=== PATIENT | male | born 1955 | race Caucasian/White ===

== ENCOUNTER 2017-04-19 05:57 | Inpatient (IN) | payer BC ==
[2017-04-19] MEDS ORDERED: Acetaminophen IV 1GM/100ML * 1,000 MG/100 ML VIAL IVPB ONE (06:00)
[2017-04-19] MEDS ORDERED: Ketorolac INJ* 30 MG/ML 1 ML VIAL IV ONE (06:00)
[2017-04-19] MEDS ORDERED: Metoclopramide TAB* 10 MG PO ONE (06:00)
[2017-04-19] MEDS ORDERED: Gabapentin CAP(*) 300 MG PO ONE (06:00)
[2017-04-19] MEDS ORDERED: Buffered Lidocaine 0.9% SYRIN* 5 ML/SYR SYRINGE INTRADERM ONE (06:00)
[2017-04-19] MEDS ORDERED: Famotidine IV* 10 MG/ML 2 ML (20 mg) IV ONE (06:00)
--- OUTSIDE RECORDS SUMMARY | 2017-04-19 06:02 | XMS REPORT ---
:1955 External Reference #:[id number] Author Organization [facility] Address [address] [address] Phone [phone] Care Team Providers Name Role Phone Max Shepherd M.D. Primary Care Physician Unavailable Payers Type Date Identification Numbers Payment Provider Subscriber Commercial Effective: Policy Number: [employer] [place] 2011 [id number] PayID: [id number] [address] [address] [place] [address] Problems Date Description Provider Status Onset: 06/19/2009 Obstructive sleep apnea syndrome Cate Schwartz DNP, RN, Active [employer] Onset: 04/18/2015 Localized, primary osteoarthritis Addy Alvarez M.D. Active Onset: 04/18/2015 Joint derangement Addy Alvarez M.D. Active Family History Date Family Member(s) Problem(s) Comments General Heart Disease General Diabetes Mother Unknown Social History Type Date Description Comments Marital Status Lives With spouse ETOH Use Denies alcohol use Smoking Patient has never smoked Exercise Type/Frequency Does not exercise Allergies, Adverse Reactions, Alerts Date Description Reaction Status Severity Comments 02/08/2013 Ketorolac active Medications Medication Date Status Form Strength Qnty SIG Indications Ordering Provider Nexium Active Capsule 40mg I by mouth Unknown 015 prn Meloxicam Active 7mg As Unknown 015 directed Tessalon /0 Active Capsules 100mg 1-2 by Unknown Perles 000 mouth three times a day as needed Flexeril Hx Tablets 10mg 60tabs 1 by mouth Addy 014 - twice a Kim, day as M.DObey 014 needed Neurontin Hx Capsules 300mg 30caps 1 po qhs Addy 013 - Kim, M.Ramiro 014 Sumatriptan 00/0 Hx Unknown Succinate 000 - 015 Ventolin HFA /0 Hx Unknown 000 - 014 Oxycodone HCL /0 Hx Unknown 000 - 014 Vital Signs Date Vital Result Comment 04/07/2017 Height 70 inches 5'10" Weight 252.00 lb w/shoes Heart Rate 82 /min BP Systolic Sitting 130 mmHg LA reg cuff BP Diastolic Sitting 92 mmHg LA reg cuff Pain Level 0 BMI (Body Mass Index) 36.2 kg/m2 03/03/2017 Height 70 inches 5'10" Weight 255.00 lb Heart Rate 60 /min BP Systolic Sitting 96 mmHg BP Diastolic Sitting 60 mmHg Respiratory Rate 14 /min O2 % BldC Oximetry 98 % BMI (Body Mass Index) 36.6 kg/m2 11/18/2016 Height 70 inches 5'10" Weight 250.00 lb Heart Rate 68 /min BP Systolic 139 mmHg BP Diastolic 79 mmHg Body Temperature 96.0 F BMI (Body Mass Index) 35.9 kg/m2 03/03/2016 Height 70 inches 5'10" Weight 250.00 lb Heart Rate 86 /min BP Systolic 118 mmHg BP Diastolic 84 mmHg Respiratory Rate 14 /min O2 % BldC Oximetry 98 % BMI (Body Mass Index) 35.9 kg/m2 06/20/2015 Height 70 inches 5'10" Weight 250.00 lb Pain Level 2 BMI (Body Mass Index) 35.9 kg/m2 04/18/2015 Height 70 inches 5'10" Weight 250.00 lb Heart Rate 68 /min BP Systolic Sitting 142 mmHg BP Diastolic Sitting 90 mmHg Respiratory Rate 18 /min Pain Level 4 BMI (Body Mass Index) 35.9 kg/m2 03/01/2015 Height 71 inches 5'11" Heart Rate 75 /min BP Systolic 138 mmHg BP Diastolic 92 mmHg Respiratory Rate 14 /min O2 % BldC Oximetry 98 % 12/28/2014 Height 71 inches 5'11" Weight 254.50 lb Heart Rate 77 /min BP Systolic Standing 112 mmHg BP Diastolic Standing 80 mmHg Respiratory Rate 14 /min Body Temperature 97.1 F O2 % BldC Oximetry 97 % BMI (Body Mass Index) 35.5 kg/m2 Neck Circumference in inches 18.5 07/12/2013 Height 71 inches 5'11" Weight 245.00 lb Heart Rate 86 /min BP Systolic 127 mmHg BP Diastolic 86 mmHg BMI (Body Mass Index) 34.2 kg/m2 06/02/2013 Heart Rate 79 /min BP Systolic 135 mmHg BP Diastolic 91 mmHg 05/05/2013 Heart Rate 82 /min BP Systolic 122 mmHg BP Diastolic 87 mmHg 04/21/2013 Heart Rate 78 /min BP Systolic 140 mmHg BP Diastolic 86 mmHg 02/08/2013 Height 70 inches 5'10" Weight 250.00 lb Heart Rate 70 /min BP Systolic 139 mmHg BP Diastolic 76 mmHg BMI (Body Mass Index) 35.9 kg/m2 Results Description No Information Procedures Date CPT Code Description Status 04/13/2013 58037 Arthroscopy Shoulder,W/Rotator Cuff Repair Completed 04/13/2013 97903 Arthroscopy Shoulder,W/Rotator Cuff Repair Completed 04/13/2013 69668 Arthroscopy,Shoulder Decompression Of Subacromial Space Completed W/Acromio 04/13/2013 58738 Arthroscopy,Shoulder Decompression Of Subacromial Space Completed W/Acromio 04/13/2013 31278 Arthroscopy Shoulder Debridement Limited Completed 04/13/2013 14673 Arthroscopy Shoulder Debridement Limited Completed Encounters Type Date Location Provider CPT E/M Dx Office Visit 03/03/2017 [facility] Cate Schwartz 19876 G47.33 2:45p [facility] RN, FNP-BC Office Visit 11/18/2016 [facility] M.D. 97699 M17.12 9:45a C.M.AObey Office Visit 03/03/2016 [facility] Cate Schwartz 34770 G47.33 3:30p [facility] RN, FNP-BC G47.00 G89.29 Office Visit 06/20/2015 9:45a [facility] 56059 M17.12 C.MElli Mcintosh Office Visit 04/18/2015 10:30a [facility] 30329 M17.12 C.MObeyAObey Mcintosh M25.362 Office Visit 03/01/2015 3:00p [facility] Cate Schwartz, 24686 G47.33 [facility] EVE THORPE, JESSICA-MARIA ELENA E66.9 Office Visit 12/28/2014 3:45p [facility] Cate Schwartz, 09878 G47.33 [facility] EVE THORPE, ELYSE Office Visit 03/22/2013 8:00a [facility], 66590 840.4 C.MElli Mcintosh Office Visit 02/08/2013 2:00p [facility], 41178 353.0 C.MElli Mcintosh 840.9 Plan of Care Future Appointment(s):02/23/2018 2:15 pm - Cate Schwartz DNP, RN, JESSICA-MARIA ELENA at [facility]04/19/2017 7:30 am - Addy Alvarez M.D. at [facility] C.M.AObey04/07/2017 - Addy Alvarez M.D.M17.12 Unilateral primary osteoarthritis, left kneeFollow up:Follow up: 3-4 months post-op
--- OUTSIDE RECORDS SUMMARY | 2017-04-19 06:03 | XMS REPORT ---
:1955 External Reference #:[id number] Author Organization [facility] Address [address] [place] [address] Phone [phone] Care Team Providers Name Role Phone Max Shepherd M.D. 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 [address] PayID: [id number] BRITTON Bennett [address] Medigap Part B Effective: Policy Number: Jelly Mayorga Willem 2011 [id number] Group Name: [employer] [address] [address] PayID: [id number] BRITTON Bennett [id number] Advance Directives Type Date Description Status Comment Other Directive 08/30/2014 Health Care Proxy Current and Verified Problems Date Description Provider Status Onset: 10/21/2011 Obstructive sleep apnea syndrome Max Shepherd M.D. Active Onset: 10/21/2011 Migraine Max Shepherd M.D. Active Onset: 10/21/2011 Gastroesophageal reflux disease Max Shepherd M.D. Active Onset: 10/21/2011 Impaired fasting glycaemia Max Shepherd M.D. Active Family History Date Family Member(s) Problem(s) Comments Father Unknown - Adopted Mother Unknown - Adopted Children 1 First Daughter Non Contributory First Brother Non Contributory Maternal Grandfather Diabetes Maternal Grandfather due to Stroke () Maternal Grandmother Diabetes Maternal Grandmother due to SC () Maternal Grandmother due to Septicemia () Social History Type Date Description Comments Marital Status Lives With Spouse Lives With Daughter Cigarette Use Quit - Age 24 Cigarette Use Pack Years - 10 ETOH Use Rarely consumes beer a couple of times a year. 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 Allergies, Adverse Reactions, Alerts Date Description Reaction Status Severity Comments 01/02/2003 NKDA active Medications Medication Date Status Form Strength Qnty SIG Indications Ordering Provider Benzonatate 04/05/ Active Capsules 200mg 45cap 1 by mouth R05 [place] 2018 s three times [place] a day for , cough Nexium 09/30/ Active Capsules 40mg 30cap take one K21.[address] gipson capsule by Shepherd, mouth daily M.D. Hinged Knee 02/20/ Active 1unit Proximal M25.562 Max Reyna 2014 s thigh Shepherd, diameter M.D. 22-23 cm. . Patellar dislocation. Left knee Cialis 11/01/ Active Tablets 20mg 10tab take 1/2 to 302.70 Max 2013 s 1 tablet by Shepherd, mouth once M.D. daily as needed. Ventolin HFA 10/10/ Active Aerosol 108(90Bas 18uni inhale two Max 2013 e) ts puffs by Cora, mcg/Act mouth every M.D. 4 hours as needed Meloxicam 09/25/ Active Tablets 7.5mg 60tab Take 1 To 2 Max 2009 s Tablets By Shepherd, Mouth Daily M.D. Amoxicillin 12/25/ Hx Tablets 875mg 20tab 1 by mouth H66.92 Max 2016 - s twice a day Cora, 03/24/ x 10 days. M.D. 2018 Ciprofloxacin 12/25/ Hx Solution 0.2% 14uni 0.25mg in H66.92 Max HCL 2016 - ts ear q 12 hrs oCra, 12/25/ x 7 days M.D. 2016 Ofloxacin 12/25/ Hx Solution 0.3% 5ml 10 drops Max (Otic) 2016 - left ear Cora, 03/23/ once per day M.D. 2018 for 10 days Lansoprazole 09/11/ Hx Capsules 30mg 30cap 1 by mouth K21.9 Hema 2016 - DR brandan Wyatt, 11/19/ MANAGER QA-C 2017 Levitra 12/02/ Hx Tablets 20mg 6tabs Take 1/2 To Max 2015 - 1 Tablet By Cora, 11/18/ Mouth Every M.D. 2017 Day as Needed Azithromycin 06/13/ Hx Tablets 250mg 6tabs 2 by mouth 466.0 Max 2014 - every day Cora, 09/11/ day 1, then M.D. 2014 1 by mouth every day days 2-5 Cheratussin ac 06/13/ Hx Syrup 100-10mg/ 236ml 10 ml po 466.0 Max 2014 - 5ML q4hrs prn Cora, 10/30/ M.D. 2014 Piroxicam 01/20/ Hx Capsules 20mg 30cap 1 tablet po 719.41 Aracelis 2012 - s qd for left Jaya, 10/31/ shoulder MANAGER QA-C 2014 pain Tramadol HCL 01/20/ Hx Tablets 50mg 30thi 1-2 tablets 719.41 Aracelis 2013 - rty po q hs prn Jaya, 10/31/ pain MANAGER QA-C 2014 Voltaren 01/18/ Hx Gel 1% 100gm apply 2 gm Max 2012 - to shoulder Cora, 10/31/ qid prn M.D. 2013 Ketorolac 01/11/ Hx Tablets 10mg 30tab 1 po q4-6hrs Max Tromethamine 2012 - s prn Cora, 01/20/ M.D. 2012 Proventil HFA 04/26/ Hx Aerosol 108(90Bas 1unit 2 puffs q4h Max 2012 - e) s prn Cora, 10/10/ mcg/Act M.D. 2014 Meclizine HCL 09/30/ Hx Tablets 12.5mg 30tab 1-2 tid prn 386.10 Max 2011 - s Cora, 12/29/ M.D. 2011 Ranitidine HCL 04/22/ Hx Tablets 150mg 60tab take 1 Max 2011 - s tablet daily Cora, 10/20/ to twice M.D. 2011 daily if needed Viagra 04/22/ Hx Tablets 100mg 12tab take 1/2 to Max 2011 - s 1 tablet by Cora, 11/19/ mouth before M.D. 2017 intercourse as directed Proventil HFA 04/18/ Hx Aerosol 108(90Bas 1unit 2 puffs q4h Max 2010 - e) mcg/ac s prn Cora, M.D. 2012 Omeprazole 10/04/ Hx Capsules 20mg 30cap 1 po qd Max 2009 - DR brandan Shepherd, M.D. 2010 Amoxicillin 06/28/ Hx Tablets 875mg 20tab 1 po bid x 461.8 Max 2009 - s 10 days. Cora, M.D. 2009 Cetirizine HCL 06/28/ Hx Tablets 10mg 30tab 1 po qd 477.9 Max 2009 - brandan Shepherd, M.D. 2009 Nexium 03/28/ Hx Capsules 40mg 30cap take one K21.9 Max 2009 - DR gipson capsule by Cora, 09/11/ mouth daily M.D. 2016 Amoxicillin 10/04/ Hx Tablets 875mg 20tab 1 po bid x Max 2008 - s 10 days. Cora, M.D. 2008 Augmentin 10/01/ Hx Tablets 875mg 14tab 1 po bid Chandrika 2009 - s Bruce 10/04/ M.D., 2009 R.D. Guaifenesin/Cod 09/25/ Hx Solution 100-10/5 100ml 1-2 tsp po 486 Max carroll 2009 - q4hr prn Cora, M.D. 2009 Azithromycin 09/25/ Hx Tablets 250mg 6tabs 2 po qd day 486 Max 2008 - 1, then 1 po Cora, 12/24/ qd days 2-5 M.D. 2009 Proventil HFA 09/04/ Hx Aerosol 108mcg/Ac 1unit 2 puffs q4h Max 2009 Frederick t s prn Cora, M.D. 2010 Meclizine HCL 08/03/ Hx Tablets 12.5mg 30tab 1-2 tid prn Max 2007 - brandan Shepherd, M.D. 2008 Levaquin 03/03/ Hx Tablets 500mg 10tab one qd x 10 Max 2006 - s susanna Shepherd, M.D. 2008 Protonix 11/03/ Hx Tablets 40mg 30tab 1 po qd Max 2007 - brandan Shepherd, M.D. 2010 Omeprazole 07/22/ Hx Capsules 20mg 30cap 1 po qd Max 2006 - s Cora, M.D. 2006 Drysol 10/07/ Hx Solution 20% 35ml apply to 780.8 Max 2005 - affected Cora, 03/28/ area qhs M.D. 2009 Flexeril 07/22/ Hx Tablets 10mg 30tab 1 po tid 724.2 Max 2005 - s Cora, M.D. 2005 Tylenol W/ 07/22/ Hx Tablets 300mg;30 30tab 1-2 q4h prn 724.2 Max Codeine #3 2005 - mg s Shepherd, M.D. 2005 Naprosyn-Ec 07/22/ Hx Tablets 500mg 60tab 1 po bid 724.2 Max 2005 - s Shepherd, M.D. 2005 Augmentin 07/08/ Hx Tablets 875mg;125 20tab one po bid Max 2005 - mg s for 10 days Cora M.D. 2005 Tylenol W11/28/ Hx Tablets 300mg;30 30tab 1-2 Q4H prn Max Codeine #3 2003 - mg s Shepherd, M.D. 2003 Augmentin 06/04/ Hx Tablets 875mg;125 20tab one po bid Rosa 2003 - mg s for 10 days K.W. 02/21/ Ronn 2004 M.DObey phenergan 06/03/ Hx 25mg 40uni one to two 789.01 Rosa 2003 - ts po qid prn K.W. 03/19/ nausea Ronn 2005 M.D. Darvocet N 100 06/03/ Hx Tablets 100mg;650 45tab 1 to 2 q6 789.01 Rosa 2004 - mg s hours prn K.W. 11/28/ pain Ronn 2004 LadanDObey Zithromax 05/28/ Hx Tablets 250mg 6tabs 2 on day Max 2003 - , then Cora, qd x4 M.D. 2004 days Vicodin Tuss 05/28/ Hx Syrup 5mg;100mg 4Oz 5 ml po q4h Max 2003 - /5ML prn Cora M.DObey 2004 Maxalt-SENIOR ARCHITECT 01/02/ Hx Tablets 10mg 6tabs take on pill Max 2002 - stat upon Cora, 07/08/ of M.DObey 2006 headache- may repeat after 2 hours Zantac / Hx Tablets 150mg 60tab one bid prn Max 0000 - s Cora, 03/28/ M.D. 2009 Albuterol / Hx Aerosol 90mcg/Dos 1unit 2 puffs q4hr Max 0000 - e s prn Cora, 09/04/ M.DObey 2008 Immunizations CPT Code Status Date Vaccine Lot # [id number] Given 11/01/2013 Prevnar-13 Pneumococcal Conjugate Vaccine [id number] 25795 Given 04/22/2011 Tdap (Adacel) [id number] 60393 Given 01/12/2008 Influenza Virus Vaccine, 3 Yrs And Above [id number] 24804 Given 01/19/2007 Influenza Virus Vaccine, 3 Yrs And Above 91754 Given 01/19/2007 Influenza Virus Vaccine, 3 Yrs And Above [id number] 34483 Given 01/26/2006 Influenza Virus Vaccine, 3 Yrs And Above [id number] 49483 Given 12/19/2004 Influenza Virus Vaccine, 3 Yrs And Above 92479 Given 03/04/2004 Pneumovax 23 (PPSV23) 65+ years or high risk 2 to 64 year old 85641 Given 03/04/2004 Influenza Virus Vaccine, 3 Yrs And Above 57037 Given 01/02/2003 DT (Adult) [id number] Refused 01/24/2015 Influenza Virus Vaccine, Quadrivalent, 3 Yr > Quad, Preserv Free Vital Signs Date Vital Result Comment 04/05/2017 Weight 253.00 lb Weight in kg's 114.761 BP Systolic 120 mmHg BP Diastolic 76 mmHg Heart Rate 66 /min Body Temperature 97.9 F temporal Respiratory Rate 18 /min O2 % BldC Oximetry 98 % 03/24/2017 Weight 256.00 lb Weight in kg's 116.122 BP Systolic 122 mmHg BP Diastolic 80 mmHg Heart Rate 62 /min Body Temperature 97.3 F Respiratory Rate 16 /min 12/25/2016 Weight 256.00 lb Weight in kg's 116.122 BP Systolic 120 mmHg BP Diastolic 80 mmHg Heart Rate 60 /min Body Temperature 97.9 F 11/19/2016 Weight 257.00 lb Weight in kg's 116.575 BP Systolic 128 mmHg BP Diastolic 80 mmHg Heart Rate 62 /min Body Temperature 97.6 F Respiratory Rate 18 /min Height 70 inches 5'10" BMI (Body Mass Index) 36.9 kg/m2 O2 % BldC Oximetry 98 % 11/21/2015 Weight 264.00 lb Weight in kg's 119.750 BP Systolic 130 mmHg BP Diastolic 80 mmHg Heart Rate 68 /min Body Temperature 96.1 F Respiratory Rate 12 /min Height 70 inches 5'10" BMI (Body Mass Index) 37.9 kg/m2 02/20/2015 Weight 256.00 lb Weight in kg's 116.122 BP Systolic 132 mmHg BP Diastolic 74 mmHg Heart Rate 64 /min 01/24/2015 Weight 253.00 lb Weight in kg's 114.761 BP Systolic 128 mmHg BP Diastolic 86 mmHg Heart Rate 72 /min Body Temperature 97.5 F O2 % BldC Oximetry 96 % 10/31/2014 Weight 254.00 lb Weight in kg's 115.214 BP Systolic 114 mmHg BP Diastolic 60 mmHg Heart Rate 68 /min Height 70 inches 5'10" BMI (Body Mass Index) 36.4 kg/m2 08/30/2014 Weight 252.00 lb Weight in kg's 114.307 BP Systolic 140 mmHg BP Diastolic 90 mmHg Heart Rate 69 /min Body Temperature 97.2 F O2 % BldC Oximetry 95 % 06/13/2014 Weight 254.00 lb Weight in kg's 115.214 BP Systolic 120 mmHg BP Diastolic 80 mmHg Heart Rate 94 /min Body Temperature 98.4 F O2 % BldC Oximetry 97 % on room air 11/01/2013 Weight 250.00 lb Weight in kg's 113.400 BP Systolic 110 mmHg BP Diastolic 72 mmHg Heart Rate 68 /min Height 70.5 inches 5'10.50" BMI (Body Mass Index) 35.4 kg/m2 05/23/2013 Weight 252.00 lb Weight in kg's 114.307 BP Systolic 118 mmHg BP Diastolic 72 mmHg Heart Rate 76 /min 01/20/2013 Weight 250.00 lb Weight in kg's 113.400 BP Systolic 118 mmHg BP Diastolic 78 mmHg Heart Rate 72 /min Body Temperature 97.0 F 01/03/2013 Weight 253.00 lb With Workboots Weight in kg's 114.761 BP Systolic 116 mmHg BP Diastolic 78 mmHg Heart Rate 92 /min 04/26/2012 Weight 247.00 lb Weight in kg's 112.039 BP Systolic 130 mmHg BP Diastolic 74 mmHg Heart Rate 64 /min Body Temperature 96.6 F Height 70 inches 5'10" BMI (Body Mass Index) 35.4 kg/m2 10/21/2011 Weight 249.00 lb Weight in kg's 112.946 BP Systolic 116 mmHg BP Diastolic 76 mmHg Heart Rate 76 /min 10/01/2011 Weight 249.00 lb Weight in kg's 112.946 BP Systolic 120 mmHg BP Diastolic 78 mmHg Heart Rate 76 /min Body Temperature 97.6 F 04/22/2011 Weight 240.00 lb Weight in kg's 108.864 BP Systolic 120 mmHg BP Diastolic 74 mmHg Heart Rate 76 /min Height 71 inches 5'11" BMI (Body Mass Index) 33.5 kg/m2 11/20/2010 Weight 245.00 lb Weight in kg's 111.132 BP Systolic 104 mmHg BP Diastolic 80 mmHg Heart Rate 92 /min 04/18/2010 Weight 252.00 lb Weight in kg's 114.307 BP Systolic 124 mmHg BP Diastolic 70 mmHg Heart Rate 88 /min Height 70.75 inches 5'10.75" BMI (Body Mass Index) 35.4 kg/m2 09/25/2009 Weight 247.00 lb Weight in kg's 112.039 BP Systolic 130 mmHg BP Diastolic 84 mmHg Heart Rate 72 /min 06/28/2009 Weight 248.00 lb Weight in kg's 112.493 BP Systolic 148 mmHg BP Diastolic 90 mmHg Heart Rate 88 /min Body Temperature 97.7 F 03/28/2009 Weight 242.00 lb Weight in kg's 109.771 BP Systolic 128 mmHg BP Diastolic 70 mmHg Heart Rate 84 /min Height 70.75 inches 5'10.75" BMI (Body Mass Index) 34.0 kg/m2 10/04/2008 Weight 240.00 lb Weight in kg's 108.864 BP Systolic 128 mmHg BP Diastolic 80 mmHg Heart Rate 76 /min 09/25/2008 Weight 239.00 lb Weight in kg's 108.410 BP Systolic 120 mmHg BP Diastolic 80 mmHg Heart Rate 75 /min Body Temperature 98.0 F O2 % BldC Oximetry 94 % 01/12/2008 Weight 240.00 lb Weight in kg's 108.864 BP Systolic 118 mmHg BP Diastolic 78 mmHg Heart Rate 72 /min Body Temperature 97.9 F Height 70.5 inches 5'10.50" BMI (Body Mass Index) 33.9 kg/m2 08/04/2007 Weight 246.00 lb Weight in kg's 111.586 BP Systolic 122 mmHg BP Diastolic 76 mmHg Heart Rate 74 /min Height 70.5 inches 5'10.50" BMI (Body Mass Index) 34.8 kg/m2 03/03/2007 Weight 236.00 lb Weight in kg's 107.050 BP Systolic 110 mmHg BP Diastolic 72 mmHg Heart Rate 94 /min Body Temperature 99.7 F Height 70.5 inches 5'10.50" BMI (Body Mass Index) 33.4 kg/m2 07/22/2006 Weight 243.00 lb Weight in kg's 110.225 BP Systolic 134 mmHg BP Diastolic 76 mmHg Body Temperature 98.6 F Height 70.5 inches 5'10.50" BMI (Body Mass Index) 34.4 kg/m2 12/08/2005 Weight 238.00 lb Weight in kg's 107.957 BP Systolic 98 mmHg BP Diastolic 66 mmHg Heart Rate 76 /min Height 70.5 inches 5'10.50" BMI (Body Mass Index) 33.7 kg/m2 10/07/2005 Weight 234.00 lb Weight in kg's 106.142 BP Systolic 110 mmHg BP Diastolic 70 mmHg Heart Rate 60 /min Respiratory Rate 18 /min Height 70.5 inches 5'10.50" BMI (Body Mass Index) 33.1 kg/m2 07/22/2005 Weight 238.00 lb Weight in kg's 107.957 BP Systolic 130 mmHg BP Diastolic 80 mmHg Heart Rate 80 /min 07/08/2005 Weight 240.00 lb Weight in kg's 108.864 BP Systolic 130 mmHg BP Diastolic 70 mmHg Heart Rate 80 /min Body Temperature 97.0 F 06/17/2005 Weight 241.00 lb Weight in kg's 109.318 BP Systolic 136 mmHg BP Diastolic 76 mmHg Body Temperature 97.8 F 12/19/2004 Weight 237.00 lb Weight in kg's 107.503 BP Systolic 110 mmHg BP Diastolic 70 mmHg Body Temperature 98.6 F 07/10/2004 Weight 221.00 lb Weight in kg's 100.246 BP Systolic 140 mmHg BP Diastolic 80 mmHg Heart Rate 80 /min 03/19/2004 Weight 228.00 lb Weight in kg's 103.421 BP Systolic 130 mmHg BP Diastolic 80 mmHg Body Temperature 97.0 F 03/04/2004 Weight 218.00 lb Weight in kg's 98.885 BP Systolic 110 mmHg BP Diastolic 64 mmHg Heart Rate 97 /min Body Temperature 96.1 F Respiratory Rate 18 /min 02/20/2004 Weight 227.00 lb Weight in kg's 102.967 BP Systolic 110 mmHg BP Diastolic 78 mmHg 11/29/2003 Weight 230.00 lb Weight in kg's 104.328 BP Systolic 120 mmHg BP Diastolic 80 mmHg Heart Rate 80 /min Body Temperature 98.8 F Respiratory Rate 20 /min 09/26/2003 Weight 224.00 lb Weight in kg's 101.606 BP Systolic 128 mmHg BP Diastolic 62 mmHg 06/04/2003 Weight 218.00 lb Weight in kg's 98.885 BP Systolic 126 mmHg BP Diastolic 80 mmHg Body Temperature 97.1 F 05/29/2003 Weight 223.00 lb Weight in kg's 101.153 BP Systolic 146 mmHg BP Diastolic 84 mmHg Heart Rate 88 /min Body Temperature 100.0 F Respiratory Rate 26 /min O2 % BldC Oximetry 84944 % 01/02/2003 Weight 225.00 lb Weight in kg's 102.060 BP Systolic 140 mmHg BP Diastolic 80 mmHg Heart Rate 68 /min Respiratory Rate 18 /min Height 70.50 inches BMI (Body Mass Index) 31.8 kg/m2 Results Test Date Test Result H/L Range Note Laboratory test finding 04/05/2017 Strep Screen neg Neg Comp Metabolic Panel 11/05/2016 Sodium 136 mmol/L 133-145 Potassium 4.6 mmol/L 3.5-5.0 Chloride 103 mmol/L 101-111 Co2 Carbon Dioxide 29 mmol/L 22-32 Anion Gap 4 mmol/L 2-11 Glucose 110 mg/dL High 70-100 Blood Urea Nitrogen 15 mg/dL 6-24 Creatinine 1.01 mg/dL 0.67-1.17 BUN/Creatinine Ratio 14.9 8-20 Calcium 9.1 mg/dL 8.6-10.3 Total Protein 6.9 g/dL 6.4-8.9 Albumin 4.0 g/dL 3.2-5.2 Globulin 2.9 g/dL 2-4 Albumin/Globulin Ratio 1.4 1-3 Total Bilirubin 0.80 mg/dL 0.2-1.0 Alkaline Phosphatase 71 U/L 34-104 Alt 20 U/L 7-52 Ast 16 U/L 13-39 Egfr Non- 75.6 >60 Egfr 97.2 >60 1 Lipid Profile (Trig/Chol/HDL) 11/05/2016 Triglycerides 70 mg/dL 2 Cholesterol 137 mg/dL 3 HDL Cholesterol 43.7 mg/dL 4 LDL Cholesterol 79 mg/dL 5 Laboratory test 11/05/2016 Hemoglobin A1c (Glyco 5.4 % Less than 6.0 6 finding HGB) CBC Auto Diff 11/05/2016 White Blood Count 4.7 10^3/uL 3.5-10.8 Red Blood Count 5.14 10^6/uL 4.0-5.4 Hemoglobin 17.3 g/dL 14.0-18.0 Hematocrit 50 % 42-52 Mean Corpuscular Volume 98 fL High 80-94 Mean Corpuscular Hemoglobin 34 pg High 27-31 Mean Corpuscular HGB Conc 34 g/dL 31-36 Red Cell Distribution Width 13 % 10.5-15 Platelet Count 235 10^3/uL 150-450 Mean Platelet Volume 9 um3 7.4-10.4 Abs Neutrophils 2.6 10^3/uL 1.5-7.7 Abs Lymphocytes 1.6 10^3/uL 1.0-4.8 Abs Monocytes 0.4 10^3/uL 0-0.8 Abs Eosinophils 0 10^3/uL 0-0.6 Abs Basophils 0 10^3/uL 0-0.2 Abs Nucleated RBC 0.01 10^3/uL Granulocyte % 56.1 % 38-83 Lymphocyte % 34.5 % 25-47 Monocyte % 8.0 % 1-9 Eosinophil % 0.8 % 0-6 Basophil % 0.6 % 0-2 Nucleated Red Blood Cells % 0.2 Lipid Profile (Trig/Chol/HDL) 11/14/2015 Triglycerides 51 mg/dL 7 Cholesterol 146 mg/dL 8 HDL Cholesterol 46.6 mg/dL 9 LDL Cholesterol 89 mg/dL 10 Laboratory test finding 11/14/2015 PSA Screening 1.739 ng/mL 0-4.000 11 Comp Metabolic Panel 11/14/2015 Sodium 136 mmol/L 133-145 Potassium 4.0 mmol/L 3.5-5.0 Chloride 105 mmol/L 101-111 Co2 Carbon Dioxide 23 mmol/L 22-32 Anion Gap 8 mmol/L 2-11 Glucose 103 mg/dL High 70-100 Blood Urea Nitrogen 17 mg/dL 6-24 Creatinine 0.99 mg/dL 0.67-1.17 BUN/Creatinine Ratio 17.2 8-20 Calcium 9.0 mg/dL 8.6-10.3 Total Protein 6.8 g/dL 6.4-8.9 Albumin 4.1 g/dL 3.2-5.2 Globulin 2.7 g/dL 2-4 Albumin/Globulin Ratio 1.5 1-3 Total Bilirubin 0.90 mg/dL 0.2-1.0 Alkaline Phosphatase 63 U/L 34-104 Alt 21 U/L 7-52 Ast 18 U/L 13-39 Egfr Non- 77.6 >60 Egfr 99.9 >60 12 CBC Auto Diff 11/14/2015 White Blood Count 4.4 10^3/uL 3.5-10.8 Red Blood Count 5.11 10^6/uL 4.0-5.4 Hemoglobin 17.1 g/dL 14.0-18.0 Hematocrit 49 % 42-52 Mean Corpuscular Volume 96 fL High 80-94 Mean Corpuscular Hemoglobin 34 pg High 27-31 Mean Corpuscular HGB Conc 35 g/dL 31-36 Red Cell Distribution Width 13 % 10.5-15 Platelet Count 184 10^3/uL 150-450 Mean Platelet Volume 8 um3 7.4-10.4 Abs Neutrophils 2.3 10^3/uL 1.5-7.7 Abs Lymphocytes 1.5 10^3/uL 1.0-4.8 Abs Monocytes 0.5 10^3/uL 0-0.8 Abs Eosinophils 0 10^3/uL 0-0.6 Abs Basophils 0 10^3/uL 0-0.2 Abs Nucleated RBC 0.01 10^3/uL Granulocyte % 52.9 % 38-83 Lymphocyte % 34.2 % 25-47 Monocyte % 11.4 % High 1-9 Eosinophil % 0.8 % 0-6 Basophil % 0.7 % 0-2 Nucleated Red Blood Cells % 0.1 Laboratory test finding 11/14/2015 Hemoglobin A1c 5.3 % Less than 6.0 13 Urine DIP 10/31/2014 Specific [place] 1.020 1.01-1.02 Urine pH 5 5-6 Leukocytes neg Neg Urine Nitrites neg Neg Total Protein, Urine neg Neg Urine Glucose norm Norm Urine Ketones neg Neg Urobilinogen norm Norm Urine Bilirubin neg Neg Urine Blood neg Neg Comp Metabolic Panel 10/31/2014 Sodium 137 mmol/L 133-145 Potassium 4.0 mmol/L 3.5-5.0 Chloride 101 mmol/L 101-111 Co2 Carbon Dioxide 29 mmol/L 22-32 Anion Gap 7 mmol/L 2-11 Glucose 101 mg/dL High 70-100 Blood Urea Nitrogen 15 mg/dL 6-24 Creatinine 0.98 mg/dL 0.67-1.17 BUN/Creatinine Ratio 15.3 8-20 Calcium 9.4 mg/dL 8.6-10.3 Total Protein 7.0 g/dL 6.4-8.9 Albumin 4.4 g/dL 3.2-5.2 Globulin 2.6 g/dL 2-4 Albumin/Globulin Ratio 1.7 1-3 Total Bilirubin 0.70 mg/dL 0.2-1.0 Alkaline Phosphatase 65 U/L 34-104 Alt 23 U/L 7-52 Ast 17 U/L 13-39 Egfr Non- 78.8 >60 Egfr 101.4 >60 14 Laboratory test 10/31/2014 Hemoglobin A1c (Glyco 5.5 % Less than 6.0 15 finding HGB) CBC Auto Diff 10/31/2014 White Blood Count 6.7 10^3/uL 4.8-10.8 Red Blood Count 5.25 10^6/uL 4.0-5.4 Hemoglobin 17.8 g/dL 14.0-18.0 Hematocrit 52 % 42-52 Mean Corpuscular Volume 99 fL High 80-94 Mean Corpuscular Hemoglobin 34 pg High 27-31 Mean Corpuscular HGB Conc 34 g/dL 31-36 Red Cell Distribution Width 13 % 10.5-15 Platelet Count 200 10^3/uL 150-450 Mean Platelet Volume 9 um3 7.4-10.4 Abs Neutrophils 3.5 10^3/uL 1.5-7.7 Abs Lymphocytes 2.5 10^3/uL 1.0-4.8 Abs Monocytes 0.6 10^3/uL 0-0.8 Abs Eosinophils 0 10^3/uL 0-0.6 Abs Basophils 0 10^3/uL 0-0.2 Abs Nucleated RBC 0.01 10^3/uL Granulocyte % 52.7 % 38-83 Lymphocyte % 37.2 % 25-47 Monocyte % 8.8 % 1-9 Eosinophil % 0.6 % 0-6 Basophil % 0.7 % 0-2 Nucleated Red Blood Cells % 0.2 Comp Metabolic Panel 11/01/2013 Sodium 138 mmol/L 133-145 Potassium 4.5 mmol/L 3.7-5.6 Chloride 102 mmol/L 101-111 Co2 Carbon Dioxide 31 mmol/L 22-32 Anion Gap 5 mmol/L 2-11 Glucose 88 mg/dL 70-100 Blood Urea Nitrogen 13 mg/dL 6-24 Creatinine 0.95 mg/dL 0.67-1.17 BUN/Creatinine Ratio 13.7 8-20 Calcium 9.2 mg/dL 8.6-10.3 Total Protein 6.9 g/dL 6.4-8.9 Albumin 4.3 g/dL 3.2-5.2 Globulin 2.6 g/dL 2-4 Albumin/Globulin Ratio 1.7 1-3 Total Bilirubin 0.60 mg/dL 0.2-1.0 Alkaline Phosphatase 72 U/L 34-104 Alt 19 U/L 7-52 Ast 16 U/L 13-39 Egfr Non- 82.0 >60 Egfr 105.5 >60 16 Laboratory test finding 11/01/2013 Hemoglobin A1c 5.3 % Less than 6.0 17 CBC Auto Diff 11/01/2013 White Blood Count 6.8 10^3/uL 4.8-10.8 Red Blood Count 5.03 10^6/uL 4.0-5.4 Hemoglobin 17.0 g/dL 14.0-18.0 Hematocrit 49 % 42-52 Mean Corpuscular Volume 98 fL High 80-94 Mean Corpuscular Hemoglobin 34 pg High 27-31 Mean Corpuscular HGB Conc 35 g/dL 31-36 Red Cell Distribution Width 13 % 10.5-15 Platelet Count 229 10^3/uL 150-450 Mean Platelet Volume 8 um3 7.4-10.4 Abs Neutrophils 3.6 10^3/uL 1.5-7.7 Abs Lymphocytes 2.4 10^3/uL 1.0-4.8 Abs Monocytes 0.7 10^3/uL 0-0.8 Abs Eosinophils 0.1 10^3/uL 0-0.6 Abs Basophils 0 10^3/uL 0-0.2 Abs Nucleated RBC 0.01 10^3/uL Granulocyte % 52.5 % 38-83 Lymphocyte % 35.4 % 25-47 Monocyte % 10.3 % High 1-9 Eosinophil % 1.1 % 0-6 Basophil % 0.7 % 0-2 Nucleated Red Blood Cells % 0.1 Laboratory test finding 11/01/2013 PSA Screening 1.374 ng/mL 0-4.000 18 Urine DIP 11/01/2013 Specific [place] 1.020 1.01-1.02 Urine pH 5 5-6 Leukocytes NEG Neg Urine Nitrites NEG Neg Total Protein, Urine NEG Neg Urine Glucose NORM Norm Urine Ketones NEG Neg Urobilinogen NORM Norm Urine Bilirubin NEG Neg Urine Blood NEG Neg Urine DIP 04/26/2012 Leukocytes NEG Neg Urine Nitrites POS Neg Urine pH 5-6 5-6 Total Protein, Urine NEG Neg Urine Glucose NORM Norm Urine Ketones NEG Neg Urobilinogen NORM Norm Urine Bilirubin NEG Neg Urine Blood NEG Neg Specific [place] N/A Low 1.01-1.02 Comp Metabolic Panel 04/19/2012 Sodium 136 mmol/L 133-145 Potassium 4.7 mmol/L 3.5-5.0 Chloride 102 mmol/L 101-111 Co2 Carbon Dioxide 29.0 mmol/L 22-32 Anion Gap 5.0 mmol/L 2-11 Glucose 124 mg/dL High 70-100 Blood Urea Nitrogen 14 mg/dL 6-24 Creatinine 1.10 mg/dL 0.50-1.40 BUN/Creatinine Ratio 12.7 8-20 Calcium 9.0 mg/dL 8.1-9.9 Total Protein 6.9 g/dL 6.2-8.1 Albumin 3.9 g/dL 3.6-5.4 Globulin 3.0 g/dL 2-4 Albumin/Globulin Ratio 1.3 1-3 Total Bilirubin 0.6 mg/dL 0.4-1.5 Alkaline Phosphatase 71 U/L 30-110 Alt 25 U/L 14-54 Ast 18 U/L 12-42 Egfr Non- 69.5 >60 Egfr 89.4 >60 19 Laboratory test finding 04/19/2012 Hemoglobin A1c 5.5 % Less than 6.0 20 CBC Auto Diff 04/19/2012 White Blood Count 5.1 10^3/uL 4.8-10.8 Red Blood Count 5.07 10^6/uL 4.0-5.4 Hemoglobin 17.1 g/dL 14.0-18.0 Hematocrit 50 % 42-52 Mean Corpuscular Volume 99 fL High 80-94 Mean Corpuscular Hemoglobin 34 pg High 27-31 Mean Corpuscular HGB Conc 34 g/dL 31-36 Red Cell Distribution Width 13 % 10.5-15 Platelet Count 240 10^3/uL 150-450 Mean Platelet Volume 9 um3 7.4-10.4 Abs Neutrophils 2.6 10^3/uL 1.5-7.7 Abs Lymphocytes 1.9 10^3/uL 1.0-4.8 Abs Monocytes 0.5 10^3/uL 0-0.8 Abs Eosinophils 0 10^3/uL 0-0.6 Abs Basophils 0 10^3/uL 0-0.2 Abs Nucleated RBC 0.01 10^3/uL Laboratory test finding 04/19/2012 Testosterone 299.8 ng/dL 175-781 Prolactin 12.94 ng/mL 1.0-20.0 TSH (Thyroid Stimulating Horm) 2.12 miu/mL 0.34-5.60 Manual Differential 04/19/2012 Neutrophil % 45 % 38-83 Lymphocytes % 35 % 25-47 Monocytes % 6 % 0-13 Eosinophils % 3 % 0-6 Reactive Lymph % 11 % High 0-6 RBC Morphology Normal Normal Laboratory test finding 10/14/2011 Hemoglobin A1c 5.3 % Less Than 6.0 21 Comp Metabolic Panel 10/14/2011 Sodium 138 mmol/L 135-145 Potassium 4.4 mmol/L 3.5-5.0 Chloride 103 mmol/L 101-111 Co2 (Carbon Dioxide) 30.0 mmol/L 22-32 Anion Gap 5.0 mmol/L 2-11 22 Glucose 105 mg/dL High 70-100 BUN 12 mg/dL 6-24 Creatinine 1.0 mg/dL 0.50-1.40 One Over Creatinine 1.00 BUN/Creatinine Ratio 12.0 8-20 Calcium 9.1 mg/dL 8.1-9.9 Total Protein 6.5 GM/DL 6.2-8.1 Albumin 3.8 GM/DL 3.6-5.4 Globulin 2.7 GM/DL 2-4 Albumin/Globulin Ratio 1.4 1-3 Bilirubin Total 0.9 mg/dL 0.4-1.5 23 Alkaline Phosphatase 78 U/L 39-117 Alt (SGPT) 28 U/L 17-63 Ast (Sgot) 20 U/L 12-42 eGFR Non- 77.9 > 60 eGFR 100.1 > 60 24 Urine DIP 04/22/2011 Leukocytes NEG Neg Urine Nitrites NEG Neg Urine pH 6 5-6 Total Protein, Urine TRACE Neg Urine Glucose NORM Norm Urine Ketones NEG Neg Urobilinogen NORM Norm Urine Bilirubin NEG Neg Urine Blood NEG Neg Specific [place] NA Low 1.01-1.02 Comp Metabolic Panel 04/15/2011 Sodium 136 mmol/L 135-145 25 Potassium 4.6 mmol/L 3.5-5.0 25 Chloride 105 mmol/L 101-111 25 Co2 (Carbon Dioxide) 27.0 mmol/L 22-32 25 Anion Gap 4.0 mmol/L 2-11 25, 26 Glucose 109 mg/dL High 70-100 25 BUN 16 mg/dL 6-24 25 Creatinine 1.0 mg/dL 0.50-1.40 25 One Over Creatinine 1.00 25 BUN/Creatinine Ratio 16.0 8-20 25 Calcium 8.8 mg/dL 8.1-9.9 25 Total Protein 6.9 GM/DL 6.2-8.1 25 Albumin 4.0 GM/DL 3.6-5.4 25 Globulin 2.9 GM/DL 2-4 25 Albumin/Globulin Ratio 1.4 1-3 25 Bilirubin Total 0.9 mg/dL 0.4-1.5 25, 27 Alkaline Phosphatase 70 U/L 39-117 25 Alt (SGPT) 29 U/L 17-63 25 Ast (Sgot) 20 U/L 12-42 25 eGFR Non- 77.9 > 60 25 eGFR 100.1 > 60 25, 28 Laboratory test finding 04/15/2011 Hemoglobin A1c 5.4 % Less Than 6.0 25 , 29 PSA 1.31 NG/ML 0-4 25, 30 CBC With Electronic Diff 04/15/2011 White Blood Count 4.5 CUMM Low 4.8- 10.8 25 Red Cell Count 4.85 CUMM 4.6-6.2 25 Hemoglobin 16.8 g/dL 14.0-18.0 25 Hematocrit 47 % 42-52 25 Mean Corpuscular Volume 97 um3 High 80-94 25 Mean Corpuscular Hemoglob 35 pg High 27-31 25 Mean Corpuscular HGB Cone 36 g/dL 32-36 25 Redcell Distribution WDTH 13 % 10.5-15 25 Platelet Count 187 CUMM 150-450 25 Mean Platelet Volume 9.4 um3 7.4-10.4 25 Gran % 52.9 % 38-83 25 Lymph % 36.5 % 25-47 25 Mononuclear % 9.2 % High 1-9 25 Eosinophil % 0.9 % 0-6 25 Basophil % 0.5 % 0-2 25 Abs Lymphs 1.6 1.0-4.8 25 Abs Mononuclear 0.4 0-0.8 25 Absolute Neutrophil Count 2.4 1.5-7.7 25 Abs Eosinophils 0 0-0.6 25 Abs Basophils 0 0-0.2 25 Urine DIP 04/18/2010 Leukocytes NEG Neg Urine Nitrites NEG Neg Urine pH 5 5-6 Total Protein, Urine NEG Neg Urine Glucose NORM Norm Urine Ketones NEG Neg Urobilinogen NORM Norm Urine Bilirubin NEG Neg Urine Blood NEG Neg Specific [place] N/A Low 1.01-1.02 Comp Metabolic Panel 04/10/2010 Sodium 140 mmol/L 135-145 Potassium 5.1 mmol/L High 3.5-5.0 Chloride 103 mmol/L 101-111 Co2 (Carbon Dioxide) 30.0 mmol/L 22-32 Anion Gap 7.0 mmol/L 2-11 31 Glucose 106 mg/dL High 70-100 BUN 16 mg/dL 6-24 Creatinine 1.10 mg/dL 0.50-1.40 One Over Creatinine 0.90 BUN/Creatinine Ratio 14.5 8-20 Calcium 9.2 mg/dL 8.1-9.9 Total Protein 6.6 GM/DL 6.2-8.1 Albumin 4.1 GM/DL 3.6-5.4 Globulin 2.5 GM/DL 2-4 Albumin/Globulin Ratio 1.6 1-3 Bilirubin Total 0.9 mg/dL 0.4-1.5 32 Alkaline Phosphatase 70 U/L 39-117 Alt (SGPT) 27 U/L 17-63 Ast (Sgot) 21 U/L 12-42 eGFR Non- 74.4 > 60 eGFR 90.1 > 60 33 Laboratory test finding 04/10/2010 Hemoglobin A1c 5.5 % Less Than 6.0 34 PSA Screening 1.23 NG/ML 0-4 35 CBC With Electronic Diff 04/10/2010 White Blood Count 5.2 CUMM 4.8-10.8 Red Cell Count 4.96 CUMM 4.6-6.2 Hemoglobin 16.9 g/dL 14.0-18.0 Hematocrit 49 % 42-52 Mean Corpuscular Volume 98 um3 High 80-94 Mean Corpuscular Hemoglob 34 pg High 27-31 Mean Corpuscular HGB Cone 35 g/dL 32-36 Redcell Distribution WDTH 13 % 10.5-15 Platelet Count 195 CUMM 150-450 Mean Platelet Volume 9.1 um3 7.4-10.4 Gran % 54.7 % 38-83 Lymph % 32.4 % 25-47 Mononuclear % 11.3 % High 1-9 Eosinophil % 1.0 % 0-6 Basophil % 0.6 % 0-2 Abs Lymphs 1.7 1.0-4.8 Abs Mononuclear 0.6 0-0.8 Absolute Neutrophil Count 2.8 1.5-7.7 Abs Eosinophils 0.1 0-0.6 Abs Basophils 0 0-0.2 Comp Metabolic Panel 09/18/2009 Sodium 139 mmol/L 135-145 Potassium 4.4 mmol/L 3.5-5.0 Chloride 106 mmol/L 101-111 Co2 (Carbon Dioxide) 27.0 mmol/L 22-32 Anion Gap 6.0 mmol/L 2-11 36 Glucose 116 mg/dL High 70-100 37 BUN 14 mg/dL 6-24 Creatinine 1.00 mg/dL 0.50-1.40 One Over Creatinine 1.00 BUN/Creatinine Ratio 14.0 8-20 Calcium 8.7 mg/dL 8.1-9.9 38 Total Protein 6.5 GM/DL 6.2-8.1 Albumin 3.9 GM/DL 3.6-5.4 Globulin 2.6 GM/DL 2-4 Albumin/Globulin Ratio 1.5 1-3 Bilirubin Total 0.9 mg/dL 0.4-1.5 39 Alkaline Phosphatase 70 U/L 39-117 Alt (SGPT) 37 U/L 17-63 Ast (Sgot) 25 U/L 12-42 eGFR Non- 83.4 > 60 eGFR 100.9 > 60 40 CBC With Electronic Diff 09/18/2009 White Blood Count 4.4 CUMM Low 4.8- 10.8 Red Cell Count 5.07 CUMM 4.6-6.2 Hemoglobin 16.8 g/dL 14.0-18.0 Hematocrit 50 % 42-52 Mean Corpuscular Volume 98 um3 High 80-94 Mean Corpuscular Hemoglob 33 pg High 27-31 Mean Corpuscular HGB Cone 34 g/dL 32-36 Redcell Distribution WDTH 13 % 10.5-15 Platelet Count 203 CUMM 150-450 Mean Platelet Volume 8.4 um3 7.4-10.4 Gran % 48.9 % 38-83 Lymph % 39.6 % 25-47 Mononuclear % 10.0 % High 1-9 Eosinophil % 1.1 % 0-6 Basophil % 0.4 % 0-2 Abs Lymphs 1.7 1.0-4.8 Abs Mononuclear 0.4 0-0.8 Absolute Neutrophil Count 2.1 1.5-7.7 Abs Eosinophils 0 0-0.6 Abs Basophils 0 0-0.2 Surgical Pathology 05/03/2009 Surgical Pathology <SEE 41 NOTE> Laboratory test 03/28/2009 Vitamin B12 259 pg/mL 180-914 finding PSA Screening 1.10 NG/ML 0-4 42 Urine DIP 03/28/2009 Leukocytes NEG Neg Urine Nitrites NEG Neg Urine pH 5 5-6 Total Protein Urine NEG Neg Urine Glucose NORM Norm Urine Ketones NEG Neg Urobilinogen NORM Norm Urine Bilirubin NEG Neg Urine Blood NEG Neg Specific [place] N/A Low 1.01-1.02 Lipid Profile (Trig/Chol/HDL) 02/18/2009 Triglyceride 61 mg/dL 40-200 Cholesterol 161 mg/dL Less Than 200 43 High Density Lipoprotein 43 mg/dL 40-60 44 Cholesterol/HDL Ratio 3.74 AVERAGE 1-4.97 Low Density Lipoprotein 106 mg/dL High Less Than 100 45 CBC With Electronic Diff 02/18/2009 White Blood Count 5.0 CUMM 4.8-10.8 Red Cell Count 5.12 CUMM 4.6-6.2 Hemoglobin 17.1 g/dL 14.0-18.0 Hematocrit 51 % 42-52 Mean Corpuscular Volume 99 um3 High 80-94 Mean Corpuscular Hemoglob 33 pg High 27-31 Mean Corpuscular HGB Cone 34 g/dL 32-36 Redcell Distribution WDTH 13 % 10.5-15 Platelet Count 232 CUMM 150-450 Mean Platelet Volume 8.1 um3 7.4-10.4 Gran % 52.4 % 38-83 Lymph % 36.9 % 25-47 Mononuclear % 9.3 % High 1-9 Eosinophil % 0.9 % 0-6 Basophil % 0.5 % 0-2 Abs Lymphs 1.8 1.0-4.8 Abs Mononuclear 0.5 0-0.8 Absolute Neutrophil Count 2.6 1.5-7.7 Abs Eosinophils 0 0-0.6 Abs Basophils 0 0-0.2 Comp Metabolic Panel 02/18/2009 Sodium 136 mmol/L 135-145 Potassium 5.0 mmol/L 3.5-5.0 Chloride 104 mmol/L 101-111 Co2 (Carbon Dioxide) 28.0 mmol/L 22-32 Anion Gap 4.0 mmol/L 2-11 46 Glucose 109 mg/dL High 70-100 47 BUN 14 mg/dL 6-24 Creatinine 1.10 mg/dL 0.50-1.40 One Over Creatinine 0.90 BUN/Creatinine Ratio 12.7 8-20 Calcium 9.1 mg/dL 8.1-9.9 48 Total Protein 6.7 GM/DL 6.2-8.1 Albumin 4.0 GM/DL 3.6-5.4 Globulin 2.7 GM/DL 2-4 Albumin/Globulin Ratio 1.5 1-3 Bilirubin Total 0.9 mg/dL 0.4-1.5 49 Alkaline Phosphatase 70 U/L 39-117 Alt (SGPT) 29 U/L 17-63 Ast (Sgot) 19 U/L 12-42 eGFR Non- 75.0 > 60 eGFR 90.8 > 60 50 CBC With Electronic Diff 10/07/2005 White Blood Count 7.0 CUMM 4.8-10.8 Abs Basophils 0 0-0.2 Abs Eosinophils 0.1 0-0.6 Absolute Neutrophil Count 3.7 1.5-7.7 Abs Lymphs 2.4 1.0-4.8 Abs Mononuclear 0.8 0-0.8 Basophil % 0.4 % 0-2 Hematocrit 52 % 42-52 Hemoglobin 18.1 g/dL High 14.0-18.0 Eosinophil % 0.7 % 0-6 Gran % 52.5 % 38-83 Lymph % 35.0 % 20-45 Mean Corpuscular HGB Cone 35 g/dL 32-36 Mean Corpuscular Hemoglob 34 pg High 27-31 Mean Corpuscular Volume 97 um3 High 80-94 Mean Platelet Volume 9.1 um3 7.4-10.4 Mononuclear % 11.4 % High 1-9 Platelet Count 264 CUMM 150-450 Red Cell Count 5.38 CUMM 4.6-6.2 Redcell Distribution WDTH 13 % 10.5-15 Comp Metabolic Panel 10/07/2005 One Over Creatinine 0.90 Anion Gap 7.0 mmol/L 2-11 51 Albumin/Globulin Ratio 1.4 1-3 Albumin 4.5 GM/DL 3.6-5.4 Alkaline Phosphatase 64 U/L 39-117 Alt (SGPT) 29 U/L 17-63 Ast (Sgot) 22 U/L 12-42 BUN 15 mg/dL 6-24 Calcium 9.6 mg/dL 8.7-10.2 Chloride 100 mmol/L Low 101-111 Co2 (Carbon Dioxide) 29.0 mmol/L 22-32 Globulin 3.2 GM/DL 2-4 Glucose 87 mg/dL 70-105 Potassium 4.6 mmol/L 3.5-5.0 Sodium 136 mmol/L 135-145 Bilirubin Total 1.0 mg/dL 0.4-1.5 Total Protein 7.7 GM/DL 6.2-8.1 BUN/Creatinine Ratio 13.6 8-20 Creatinine 1.1 mg/dL 0.5-1.4 Laboratory test finding 10/07/2005 Erythrocyte Sed Rate 1 MM/HR 0-15 TSH cancelled CBC With Manual Diff 12/19/2004 White Blood Count 4.6 CUMM Low 4.8-10.8 Hematocrit 49 % 42-52 Hemoglobin 17.0 g/dL 14.0-18.0 Mean Corpuscular HGB Cone 35 g/dL 32-36 Mean Corpuscular Hemoglob 34 pg High 27-31 Mean Corpuscular Volume 97 um3 High 80-94 Mean Platelet Volume 8.4 um3 7.4-10.4 Platelet Count 271 CUMM 150-450 Polysegmented Neutrophil 44 % 38-83 Red Cell Count 5.03 CUMM 4.6-6.2 Redcell Distribution WDTH 13 % 10.5-15 Absolute Neutrophil Count 2.0 Atypical Lymph 4 % 0-6 Anisocytosis SLIGHT Basophil 1 % 0-2 Lymphocyte 37 % 5-47 Monocyte 14 % High 0-13 Polychromasia SLIGHT Laboratory test finding 03/04/2004 Oximetry - Single Study 96% Comprehensive Metabolic 02/20/2004 Glucose 106 mg/dL 61.0 - 110.0 BUN 12 mg/dL 5.0 - 21.0 Creatinine, Serum 1.0 mg/dL 0.6 - 1.5 Sodium 137 mmol/L 136.0 - 146.0 Potassium 4.9 mmol/L 3.5 - 5.3 Chloride 101 mmol/L 98.0 - 107.0 Carbon Dioxide 27 mmol/L 20.0 - 32.0 Albumin 4.3 g/dL 3.5 - 4.7 Protein, Total 7.8 g/dL 6.4 - 8.2 Calcium 9.8 mg/dL 8.4 - 10.6 Alkaline Phosphatase 120 U/L High 10.0 - 118.0 Sgot (Ast) 31 U/L High 3.0 - 30.0 SGPT (Alt) 47 U/L High 7.0 - 40.0 Bilirubin, Total 0.81 mg/dL 0.3 - 1.2 CBC 02/20/2004 WBC 9.6 x10*3 4.3 - 10.9 RBC 4.80 x10*6 4.2 - 5.6 Hemoglobin 15.9 g/dL 13.0 - 17.0 Hematocrit 45.5 % 39.0 - 50.0 MCV 94.7 fl 82.0 - 98.0 MCH 33.0 pg 27.5 - 33.5 MCHC 34.9 g/dL 32.0 - 36.0 RDW 12.7 % 11.5 - 14.5 Platelet Count 355 x10*3 130.0 - 400.0 MPV 8.2 fl 6.5 - 10.5 Segmented Neutrophils 77.1 % High 44.0 - 74.0 Lymphocytes 12.6 % Low 15.0 - 45.0 Monocytes 9.7 % 2.0 - 13.0 Eosinophils 0.6 % 0.0 - 6.0 Basophils 0.0 % 0.0 - 2.0 Neutrophil Absolute 7.4 x10*3 High 1.4 - 7.0 Lymphocytes Absolute 1.2 x10*3 1.0 - 3.4 Monocyte Absolute 0.9 x10*3 0.2 - 1.0 Eosinophil Absolute 0.1 x10*3 0.0 - 0.5 Basophil Absolute 0.0 x10*3 0.0 - 0.2 Laboratory test finding 02/20/2004 GFR (Calculated) >60 52 Urine DIP 06/04/2003 Leukocytes NEG Neg Urine Nitrites NEG Neg Urine pH 5 5-6 Total Protein, Urine NEG Neg Urine Glucose NORM Norm Urine Ketones NEG Neg Urobolinogen 8 High Norm Urine Bilirubin NEG Neg Urine Blood NEG Neg Specific [place] 1.025 High 1.01-1.02 CBC 06/04/2003 WBC 12.1 x10*3 High 4.3 - 10.9 RBC 4.76 x10*6 4.2 - 5.6 Hemoglobin 15.1 g/dL 13.0 - 17.0 Hematocrit 44.3 % 39.0 - 50.0 MCV 93.2 fl 82.0 - 98.0 MCH 31.8 pg 27.5 - 33.5 MCHC 34.1 g/dL 32.0 - 36.0 RDW 12.1 % 11.5 - 14.5 Platelet Count 561 x10*3 High 130.0 - 400.0 MPV 7.8 fl 6.5 - 10.5 Segmented Neutrophils 78.4 % High 44.0 - 74.0 Lymphocytes 11.7 % Low 15.0 - 45.0 Monocytes 8.9 % 2.0 - 13.0 Eosinophils 0.8 % 0.0 - 6.0 Basophils 0.2 % 0.0 - 2.0 Neutrophil Absolute 9.5 x10*3 High 1.4 - 7.0 Lymphocytes Absolute 1.4 x10*3 1.0 - 3.4 Monocyte Absolute 1.1 x10*3 High 0.2 - 1.0 Eosinophil Absolute 0.1 x10*3 0.0 - 0.5 Basophil Absolute 0.0 x10*3 0.0 - 0.2 Laboratory test finding 06/04/2003 Amylase <30 U/L 30.0 - 110.0 Comprehens.+ Hepatic 06/04/2003 Glucose 97 mg/dL 61.0 - 110.0 BUN 16 mg/dL 5.0 - 21.0 Creatinine, Serum 0.9 mg/dL 0.6 - 1.5 Sodium 135 mmol/L 135.0 - 146.0 Potassium 5.0 mmol/L 3.5 - 5.3 Chloride 97 mmol/L Low 98.0 - 108.0 Carbon Dioxide 26 mmol/L 23.0 - 33.0 Albumin 3.8 g/dL 3.8 - 4.6 Protein, Total 7.7 g/dL 6.2 - 8.0 Calcium 9.0 mg/dL 8.3 - 10.3 Alkaline Phosphatase 210 U/L High 45.0 - 120.0 Sgot (Ast) 69 U/L High 9.0 - 43.0 SGPT (Alt) 115 U/L High 11.0 - 51.0 Bilirubin, Total 1.10 mg/dL 0.2 - 1.3 Bilirubin, Direct 0.40 mg/dL 0.0 - 0.6 Bilirubin, Indirect 0.70 mg/dL 0.1 - 1.1 Laboratory test finding 05/29/2003 Oximetry - Single Study 95 Comp Metabolic Panel 01/03/2003 Anion Gap 6 mmol/L 2-11 53 Albumin/Globulin Ratio 1.5 1-3 Albumin 4.1 GM/DL 3.6-5.4 Alkaline Phosphatase 69 U/L 39-117 Alt (SGPT) 30 U/L 17-63 Ast (Sgot) 20 U/L 12-42 BUN 16 mg/dL 6-24 Calcium 9.8 mg/dL 8.7-10.2 Chloride 102 mmol/L 101-111 Co2 (Carbon Dioxide) 30 mmol/L 22-32 Creatinine 0.9 mg/dL 0.5-1.4 Globulin 2.7 GM/DL 2-4 Glucose 95 mg/dL 70-105 Potassium 4.5 mmol/L 3.5-5.0 Sodium 138 mmol/L 135-145 Bilirubin Total 0.6 mg/dL 0.4-1.5 Total Protein 6.8 GM/DL 6.2-8.1 BUN/Creatinine Ratio 17.8 8-20 Laboratory test finding 01/03/2003 TSH 1.51 MIU/ML 0.34-5.60 Lipid Profile 01/03/2003 Cholesterol/HDL Ratio 4.21 AVERAGE 1-4.97 (Trig/Chol/HDL) Cholesterol 154 mg/dL Less Than 200 54 Triglyceride 102 mg/dL 40-200 High Density Lipoprotein 36.6 mg/dL Low 40-60 55 Low Density Lipoprotein 97 mg/dL Less Than 100 56 CBC With Manual Diff 01/03/2003 Platelet Count 288 CUMM 150-450 White Blood Count 5.7 CUMM 4.8-10.8 Hematocrit 51 % 42-52 Hemoglobin 17.0 g/dL 14.0-18.0 Mean Corpuscular HGB Cone 33 g/dL 32-36 Mean Corpuscular Hemoglob 32 pg High 27-31 Mean Corpuscular Volume 97 um3 High 80-94 Mean Platelet Volume 8.5 um3 7.4-10.4 Red Cell Count 5.28 CUMM 4.6-6.2 Redcell Distribution WDTH 12 % 10.5-15 RBC Morphology NORMAL Atypical Lymph 1 % 0-6 Eosenophil 2 % 0-6 Lymphocyte 36 % 5-47 Monocyte 7 % 0-13 Polysegmented Neutrophil 54 % 38-83 Urine DIP 01/02/2003 Leukocytes NEG Neg Urine Nitrites NEG Neg Urine pH 5 5-6 Total Protein, Urine NEG Neg Urine Glucose NORM Norm Urine Ketones NEG Neg Urobolinogen NORM Norm Urine Bilirubin NEG Neg Urine Blood NEG Neg 1 Because ethnic data is not always readily available, this report includes an eGFR for both -Americans and non- Americans. The National Kidney Disease Education Program (NKDEP) does not endorse the use of the MDRD equation for patients that are not between the ages of 18 and 70, are , have extremes of body size, muscle mass, or nutritional status, or are non- or non-. According to the National Kidney Foundation, irrespective of diagnosis, the stage of the disease is based on the level of kidney function: Stage Description GFR(mL/min/1.73 m(2)) 1 Kidney damage with normal or decreased GFR 90 2 Kidney damage with mild decrease in GFR 60-89 3 Moderate decrease in GFR 30-59 4 Severe decrease in GFR 15-29 5 Kidney failure <15 (or dialysis) 2 Desirable <150 Borderline high 150-199 High 200-499 Very High >500 3 Desirable <200 Borderline high 200-239 High >239 4 Low <40 Desirable: 40-60 High: >60 5 Desirable: <100 mg/dL Near Optimal: 100-129 mg/dL Borderline High: 130-159 mg/dL High: 160-189 mg/dL Very High: >189 mg/dL 6 Therapeutic target for the treatment of diabetes Mellitus patients is <7% HBA1C, and in selective patients <6.0%.Please refer to [place] [employer] Diabetic care guidelines for further information. 7 Desirable <150 Borderline high 150-199 High 200-499 Very High >500 8 Desirable <200 Borderline high 200-239 High >239 9 Low <40 Desirable: 40-60 High: >60 10 Desirable: <100 mg/dL Near Optimal: 100-129 mg/dL Borderline High: 130-159 mg/dL High: 160-189 mg/dL Very High: >189 mg/dL 11 Serum levels of PSA measured using the [employer] DXI Hybritech immunoassay should not be interpreted as absolute evidence of the presence or absence of disease. The PSA value should be used in conjunction with other pertinent clinical diagnostic procedures. The values obtained with different assay methods or kits cannot be used interchangeably. 12 Because ethnic data is not always readily available, this report includes an eGFR for both -Americans and non- Americans. The National Kidney Disease Education Program (NKDEP) does not endorse the use of the MDRD equation for patients that are not between the ages of 18 and 70, are , have extremes of body size, muscle mass, or nutritional status, or are non- or non-. According to the National Kidney Foundation, irrespective of diagnosis, the stage of the disease is based on the level of kidney function: Stage Description GFR(mL/min/1.73 m(2)) 1 Kidney damage with normal or decreased GFR 90 2 Kidney damage with mild decrease in GFR 60-89 3 Moderate decrease in GFR 30-59 4 Severe decrease in GFR 15-29 5 Kidney failure <15 (or dialysis) 13 Therapeutic target for the treatment of diabetes Mellitus patients is <7% HBA1C, and in selective patients <6.0%.Please refer to [place] [employer] Diabetic care guidelines for further information. 14 Because ethnic data is not always readily available, this report includes an eGFR for both -Americans and non- Americans. The National Kidney Disease Education Program (NKDEP) does not endorse the use of the MDRD equation for patients that are not between the ages of 18 and 70, are , have extremes of body size, muscle mass, or nutritional status, or are non- or non-. According to the National Kidney Foundation, irrespective of diagnosis, the stage of the disease is based on the level of kidney function: Stage Description GFR(mL/min/1.73 m(2)) 1 Kidney damage with normal or decreased GFR 90 2 Kidney damage with mild decrease in GFR 60-89 3 Moderate decrease in GFR 30-59 4 Severe decrease in GFR 15-29 5 Kidney failure <15 (or dialysis) 15 Therapeutic target for the treatment of diabetes Mellitus patients is <7% HBA1C, and in selective patients <6.0%.Please refer to [place] [employer] Diabetic care guidelines for further information. 16 Because ethnic data is not always readily available, this report includes an eGFR for both -Americans and non- Americans. The National Kidney Disease Education Program (NKDEP) does not endorse the use of the MDRD equation for patients that are not between the ages of 18 and 70, are , have extremes of body size, muscle mass, or nutritional status, or are non- or non-. According to the National Kidney Foundation, irrespective of diagnosis, the stage of the disease is based on the level of kidney function: Stage Description GFR(mL/min/1.73 m(2)) 1 Kidney damage with normal or decreased GFR 90 2 Kidney damage with mild decrease in GFR 60-89 3 Moderate decrease in GFR 30-59 4 Severe decrease in GFR 15-29 5 Kidney failure <15 (or dialysis) 17 Therapeutic target for the treatment of diabetes Mellitus patients is <7% HBA1C, and in selective patients <6.0%.Please refer to [place] [employer] Diabetic care guidelines for further information. 18 Serum levels of PSA measured using the [employer] DXI Hybritech immunoassay should not be interpreted as absolute evidence of the presence or absence of disease. The PSA value should be used in conjunction with other pertinent clinical diagnostic procedures. The values obtained with different assay methods or kits cannot be used interchangeably. 19 Because ethnic data is not always readily available, this report includes an eGFR for both -Americans and non- Americans. The National Kidney Disease Education Program (NKDEP) does not endorse the use of the MDRD equation for patients that are not between the ages of 18 and 70, are , have extremes of body size, muscle mass, or nutritional status, or are non- or non-. According to the National Kidney Foundation, irrespective of diagnosis, the stage of the disease is based on the level of kidney function: Stage Description GFR(mL/min/1.73 m(2)) 1 Kidney damage with normal or decreased GFR 90 2 Kidney damage with mild decrease in GFR 60-89 3 Moderate decrease in GFR 30-59 4 Severe decrease in GFR 15-29 5 Kidney failure <15 (or dialysis) 20 Therapeutic target for the treatment of diabetes Mellitus patients is <7% HBA1C, and in selective patients <6.0%.Please refer to [place] [employer] Diabetic care guidelines for further information. 21 THERAPEUTIC TARGET FOR THE TREATMENT OF DIABETES MELLITUS PATIENTS IS <7% HBA1C, AND IN SELECTIVE PATIENTS <6.0%. PLEASE REFER TO [place] [employer] DIABETIC CARE GUIDELINES FOR FURTHER INFORMATION. 22 Anion gap measurement may be of limited value in the presence of any alkalosis, especially in a combined acid base disorder. . 23 A metabolite of Naproxen, O-desmethylnaproxen, has been shown to interfere with the Jendrassik-Kaaawa method for measuring total bilirubin. Samples from patients who have taken Naproxen have shown spurious elevation in total bilirubin levels. 24 Because ethnic data is not always readily available, this report includes an eGFR for both -Americans and non- Americans. The National Kidney Disease Education Program (NKDEP) does not endorse the use of the MDRD equation for patients that are not between the ages of 18 and 70, are , have extremes of body size, muscle mass, or nutritional status, or are non- or non-. According to the National Kidney Foundation, irrespective of diagnosis, the stage of the disease is based on the level of kidney function: Stage Description GFR(mL/min/1.73 m(2)) 1 Kidney damage with normal or decreased GFR 90 2 Kidney damage with mild decrease in GFR 60-89 3 Moderate decrease in GFR 30-59 4 Severe decrease in GFR 15-29 5 Kidney failure <15 (or dialysis) 25 FASTING 26 Anion gap measurement may be of limited value in the presence of any alkalosis, especially in a combined acid base disorder. . 27 A metabolite of Naproxen, O-desmethylnaproxen, has been shown to interfere with the Jendrassik-Kaaawa method for measuring total bilirubin. Samples from patients who have taken Naproxen have shown spurious elevation in total bilirubin levels. 28 Because ethnic data is not always readily available, this report includes an eGFR for both -Americans and non- Americans. The National Kidney Disease Education Program (NKDEP) does not endorse the use of the MDRD equation for patients that are not between the ages of 18 and 70, are , have extremes of body size, muscle mass, or nutritional status, or are non- or non-. According to the National Kidney Foundation, irrespective of diagnosis, the stage of the disease is based on the level of kidney function: Stage Description GFR(mL/min/1.73 m(2)) 1 Kidney damage with normal or decreased GFR 90 2 Kidney damage with mild decrease in GFR 60-89 3 Moderate decrease in GFR 30-59 4 Severe decrease in GFR 15-29 5 Kidney failure <15 (or dialysis) 29 THERAPEUTIC TARGET FOR THE TREATMENT OF DIABETES MELLITUS PATIENTS IS <7% HBA1C, AND IN SELECTIVE PATIENTS <6.0%. PLEASE REFER TO [place] DIABETIC CARE GUIDELINES FOR FURTHER INFORMATION. 30 * SERUM LEVELS OF PSA MEASURED USING THE [employer]ISA MARIELA ACCESS HYBRITECH IMMUNOASSAY SHOULD NOT BE INTERPRETED ABSOLUTE EVIDENCE OF THE PRESENCE OR ABSENCE OF DISEASE. THE PSA VALUE SHOULD BE USED IN CONJUNCTION WITH OTHER PERTINENT CLINICAL DIAGNOSTIC PROCEDURES. The values obtained with different assay methods or kits cannot be used interchangeably. 31 Anion gap measurement may be of limited value in the presence of any alkalosis, especially in a combined acid base disorder. . 32 A metabolite of Naproxen, O-desmethylnaproxen, has been shown to interfere with the Jendrassik-Emily method for measuring total bilirubin. Samples from patients who have taken Naproxen have shown spurious elevation in total bilirubin levels. 33 Because ethnic data is not always readily available, this report includes an eGFR for both -Americans and non- Americans. The National Kidney Disease Education Program (NKDEP) does not endorse the use of the MDRD equation for patients that are not between the ages of 18 and 70, are , have extremes of body size, muscle mass, or nutritional status, or are non- or non-. According to the National Kidney Foundation, irrespective of diagnosis, the stage of the disease is based on the level of kidney function: Stage Description GFR(mL/min/1.73 m(2)) 1 Kidney damage with normal or decreased GFR 90 2 Kidney damage with mild decrease in GFR 60-89 3 Moderate decrease in GFR 30-59 4 Severe decrease in GFR 15-29 5 Kidney failure <15 (or dialysis) 34 THERAPEUTIC TARGET FOR THE TREATMENT OF DIABETES MELLITUS PATIENTS IS <7% HBA1C, AND IN SELECTIVE PATIENTS <6.0%. PLEASE REFER TO [place] DIABETIC CARE GUIDELINES FOR FURTHER INFORMATION. 35 * SERUM LEVELS OF PSA MEASURED USING THE [employer]ISA MARIELA ACCESS HYBRITECH IMMUNOASSAY SHOULD NOT BE INTERPRETED ABSOLUTE EVIDENCE OF THE PRESENCE OR ABSENCE OF DISEASE. THE PSA VALUE SHOULD BE USED IN CONJUNCTION WITH OTHER PERTINENT CLINICAL DIAGNOSTIC PROCEDURES. 36 Anion gap measurement may be of limited value in the presence of any alkalosis, especially in a combined acid base disorder. . 37 Note change in reference range as of 11/03/07. The change was based on recommendations from the [place] [employer]. 38 Please note change in reference range effective 07 . 39 A metabolite of Naproxen, O-desmethylnaproxen, has been shown to interfere with the Jendrassik-Emily method for measuring total bilirubin. Samples from patients who have taken Naproxen have shown spurious elevation in total bilirubin levels. 40 Because ethnic data is not always readily available, this report includes an eGFR for both -Americans and non- Americans. The National Kidney Disease Education Program (NKDEP) does not endorse the use of the MDRD equation for patients that are not between the ages of 18 and 70, are , have extremes of body size, muscle mass, or nutritional status, or are non- or non-. According to the National Kidney Foundation, irrespective of diagnosis, the stage of the disease is based on the level of kidney function: Stage Description GFR(mL/min/1.73 m(2)) 1 Kidney damage with normal or decreased GFR 90 2 Kidney damage with mild decrease in GFR 60-89 3 Moderate decrease in GFR 30-59 4 Severe decrease in GFR 15-29 5 Kidney failure <15 (or dialysis) 41 ---- RUN DATE: 05/06/09 [facility] NMI LIVE PAGE 1 RUN TIME: 1454 Specimen Inquiry RUN USER: INTERFACE -- Name: ALEJANDRO BANGURA Status: REG REF Re05/03/09 Age/Sex: 54/M Unit#: [id number] Location: [facility] : 59 -- Specimen: [id number] Spec Date: 05/03/[address]: Edwar poon MD Spec Type: SURGICAL P Received: 05/03/09-1417 Copies to: Max Shepherd MD SPECIMEN BIOPSY CECAL POLYP HISTORY POST-OP DIAGNOSIS: Cecal polyp removed CLINICAL INFORMATION: Screening colonoscopy GROSS DESCRIPTION Specimen received in formalin labelled Alejandro MckinnonObey Bangura, Biopsy Cecal Polyp and consists of three, quiles, soft tissue fragments measuring 0.7 x 0.3 x 0.2 cm. in aggregate. Submitted entirely, one cassette. DIAGNOSIS Colon, cecum, biopsy: Hyperplastic polyp. Signed Electronically by: TAHIR HYDE MD 05/06/09 1453 -- -- DEPARTMENT OF PATHOLOGY, [address] [place] [address] [facility] Permit #[id number] Tahir Hyde M.D. Director Jerry Rangel M.D. Cat Operator Dir joselyn -- 42 * SERUM LEVELS OF PSA MEASURED USING THE Vizsafe ACCESS HYBRITECH IMMUNOASSAY SHOULD NOT BE INTERPRETED ABSOLUTE EVIDENCE OF THE PRESENCE OR ABSENCE OF DISEASE. THE PSA VALUE SHOULD BE USED IN CONJUNCTION WITH OTHER PERTINENT CLINICAL DIAGNOSTIC PROCEDURES. 43 CHOLESTEROL INTERPRETATION: Desirable: Less than 200 MG/DL Borderline-High Risk: 200-239 MG/DL High-Risk: 240 MG/DL and over 44 HDL INTERPRETATION: Undesirable: High Risk: Less than 40 MG/DL Desirable: Low Risk: Greater than 60 MG/DL 45 LDL INTERPRETATION: Low Risk Optimal Level: LDL Less than 100 MG/DL Near or Above Optimal: LDL 100-129 MG/DL Borderline High Risk: LDL 130-159 MG/DL High Risk: LDL 160-189 MG/DL Very High Risk: LDL Greater than 189 MG/DL 46 Anion gap measurement may be of limited value in the presence of any alkalosis, especially in a combined acid base disorder. . 47 Note change in reference range as of 11/03/07. The change was based on recommendations from the [place] [employer]. 48 Please note change in reference range effective 07 . 49 A metabolite of Naproxen, O-desmethylnaproxen, has been shown to interfere with the Jendrassik-Emily method for measuring total bilirubin. Samples from patients who have taken Naproxen have shown spurious elevation in total bilirubin levels. 50 Because ethnic data is not always readily available, this report includes an eGFR for both -Americans and non- Americans. The National Kidney Disease Education Program (NKDEP) does not endorse the use of the MDRD equation for patients that are not between the ages of 18 and 70, are , have extremes of body size, muscle mass, or nutritional status, or are non- or non-. According to the National Kidney Foundation, irrespective of diagnosis, the stage of the disease is based on the level of kidney function: Stage Description GFR(mL/min/1.73 m(2)) 1 Kidney damage with normal or decreased GFR 90 2 Kidney damage with mild decrease in GFR 60-89 3 Moderate decrease in GFR 30-59 4 Severe decrease in GFR 15-29 5 Kidney failure <15 (or dialysis) 51 Anion gap measurement may be of limited value in the presence of any alkalosis, especially in a combined acid base disorder. . 52 . Normal Function or Mild Renal Disease, if clinically at risk: >or=60 Moderately decreased: 30 - 59 Severely decreased: 15 - 29 Renal Failure: <15 . Please note that the MDRD equation requires an additional adjustment for -Americans (multiply the GFR result by 1.210). . Glomerular Filtration Rate (GFR) is estimated based on the MDRD equation, which assumes a steady state for creatinine (Jacki Int Med 139/2 137-149, 2003), as recommended by the National Kidney Disease Education Program in conjunction with the National Institutes of Health and the National Kidney Foundation. . Clinical conditions in which it may be necessary to measure GFR by using clearance methods include extremes of age and body size, severe malnutrition or obesity, diseases of skeletal muscle, paraplegia or quadriplegia, vegetarian diet, rapidly changing kidney function, and calculation of the dose of potentially toxic drugs that are excreted by the kidneys. . 53 Anion gap measurement may be of limited value in the presence of any alkalosis, especially in a combined acid base disorder. . 54 Classification: Desirable . 55 Classification: Low . 56 CALCULATED LDL APPROXIMATES THE VALUE OF A DIRECT LDL MEASUREMENT. Classification: Optimal Level . Procedures Date CPT Code Description Status Comment 11/19/2016 92733 EKG, at Least 12 Leads Completed w/Interpretation and Report 04/15/2009 Colonoscopy Completed hyperplastic polyp. Repeat recommended 2019. 03/28/2009 38863 EKG, at Least 12 Leads Completed w/Interpretation and Report 03/04/2004 45692 Oximetry - Single Study Completed 05/29/2003 76598 Oximetry - Single Study Completed Encounters Type Date Location Provider CPT E/M Dx Office Visit 03/24/2017 10:45a Main Office Max Shepherd M.D. 84520 Z01.818 M17.12 Office Visit 12/25/2016 11:15a Main Office Max Shepherd M.D. 01564 H66.92 Office Visit 11/19/2016 2:15p Main Office Max Shepherd M.D. 42430 Z00.00 K21.9 R73.01 G47.33 M25.562 Office Visit 11/21/2015 2:15p Main Office Max Shepherd M.D. 92652 Z00.00 G47.33 R73.01 K21.9 M17.12 Office Visit 02/20/2015 3:45p Main Office Max Shepherd M.D. 25777 M25.562 Office Visit 01/24/2015 4:00p Main Office Max Shepherd M.D. 45557 H81.399 Office Visit 10/31/2014 2:15p Main Office Max Shepherd M.D. 99677 V70.0 327.23 790.21 530.81 Office Visit 08/30/2014 4:45p Main Office Max Shepherd M.D. 94870 466.0 Office Visit 06/13/2014 3:45p Main Office Max Shepherd M.D. 33750 466.0 Office Visit 11/01/2013 2:15p Main Office Max Shepherd M.D. 96165 V70.0 327.23 790.21 530.81 302.70 V76.44 V03.82 Office Visit 05/23/2013 3:30p Main Office Max Shepherd M.D. 00055 726.13 Office Visit 01/20/2013 4:00p Main Office [place] [facility] 80605 719.41 Office Visit 01/03/2013 4:00p Main Office Max Shepherd M.D. 78649 719.41 Office Visit 04/26/2012 8:45a Main Office Max Shepherd M.D. 61022 V70.0 346.90 327.23 790.21 530.81 Office Visit 10/21/2011 9:30a Main Office aMx Shepherd M.D. 68532 790.21 530.81 346.90 386.10 327.23 Office Visit 10/01/2011 4:45p Main Office Max Shepherd M.D. 72883 386.10 Office Visit 04/22/2011 8:45a Main Office Max Shepherd M.D. 77019 V70.0 790.21 530.81 780.50 346.90 V06.1 Office Visit 11/20/2010 9:30a Main Office Max Shepherd M.D. 74939 790.21 530.81 780.50 346.90 278.00 Office Visit 04/18/2010 9:00a Main Office Max Shepherd M.D. 17754 V70.0 790.21 530.81 780.50 840.4 346.90 278.00 Office Visit 09/25/2009 9:45a Main Office Max Shepherd M.D. 47490 790.21 477.9 780.50 530.81 840.4 Office Visit 06/28/2009 12:15p Main Office Max Shepherd M.D. 73158 461.8 477.9 780.50 Office Visit 03/28/2009 2:15p Main Office Max Shepherd M.D. 88041 V70.0 530.81 790.21 346.90 553.1 289.89 389.9 780.50 Office Visit 10/04/2008 4:45p Main Office Max Shepherd M.D. 12557 486 Office Visit 09/25/2008 3:45p Main Office Max Shepherd M.D. 20596 486 Office Visit 01/12/2008 3:45p Main Office Max Shepherd M.D. 15037 382.9 V04.81 Office Visit 08/04/2007 2:15p Main Office Max Shepherd M.D. 96553 386.10 Office Visit 03/03/2007 4:15p Main Office Max Shepherd M.D. 66944 466.0 Office Visit 07/22/2006 3:30p Main Office Max Shepherd M.D. 87701 381.01 787.1 Office Visit 12/08/2005 10:45a Main Office Max Shepherd M.D. 73974 346.90 780.8 784.0 787.1 553.1 Office Visit 10/07/2005 1:15p Main Office Max Shepherd M.D. 15099 V70.0 346.90 V18.0 780.8 493.90 784.0 Office Visit 07/22/2005 1:15p Main Office Max Shepherd M.D. 38016 724.2 Office Visit 07/08/2005 3:30p Main Office Max Shepherd M.D. 68757 381.01 784.0 346.10 Office Visit 06/17/2005 3:45p Main Office Max Shepherd M.D. 68808 381.01 Office Visit 12/19/2004 12:15p Main Office Max Shepherd M.D. 67873 510.9 786.59 V04.81 Office Visit 07/10/2004 3:45p Main Office Max Shepherd M.D. 40605 930.9 Office Visit 03/19/2004 3:30p Main Office Max Shepherd M.D. 85936 510.9 Office Visit 03/04/2004 9:15a Main Office Max Shepherd M.D. 04599 510.9 V04.81 V03.82 Office Visit 02/20/2004 3:15p Main Office Max Shepherd M.D. 04654 786.2 Office Visit 11/29/2003 4:15p Main Office Max Shepherd M.D. 60371 346.90 786.2 Office Visit 09/26/2003 11:15a Main Office Aracelis Medina M.D. 82139 930.0 Office Visit 06/04/2003 3:45p Main Office Rosa Brody M.D. 02614 789.01 Office Visit 05/29/2003 3:00p Main Office Max Shepherd M.D. 46165 465.9 Office Visit 01/02/2003 1:15p Main Office Max Shepherd M.D. 90470 V70.0 780.8 346.90 V76.9 Plan of Care 04/05/2017 - [place] Diallo, MDR05 CoughNew Medication:Benzonatate 200 mgComments:1 week of classic viral symptoms, already turning a corner and starting to resolve. No alarm symptoms, exam is benign. We discussed that I don' t think his symptoms will scare off the surgeon or anesthesia, in 2 days he should be even better, then he still has 2 weeks to get over what seems to be just a cold. We reviewed that there is no medication that will speed his recovery at this point, so we will have to settle for symptomatic treatment.
--- OUTSIDE RECORDS SUMMARY | 2017-04-19 06:04 | XMS REPORT ---
:1955 External Reference #:[id number] Author Organization [facility] Address [address] [place] [address] Phone [phone] Care Team Providers Name Role Phone Max Shepherd M.D. Care Team Information Practice Billing Associate Unavailable Payers Type Date Identification Numbers Payment Provider Subscriber Commercial Effective: Policy Number: Jelly MARIA ELENABRAYAN Mayorga Willem 2002 [id number] Expires: 2011 Group Name: [employer] [address] [address] PayID: [id number] BRITTON Bennett [id number] Medigap Part B Effective: Policy Number: Jelly Mayorga Willem 2011 [id number] Group Name: [employer] [address] [address] PayID: [id number] BRITTON Bennett [id number] Advance Directives Type Date Description Status Comment [...] Maternal Grandmother Diabetes Maternal Grandmother due to [place] () Maternal Grandmother due to Septicemia () [...] Strength Qnty SIG Indications Ordering Provider Nexium 09/30/ Active Capsules 40mg 30cap take one K21.[address] gipson capsule by Shepherd, mouth daily M.D. Hinged Knee 02/20/ Active 1unit Proximal M25.562 Max Reyna 2014 s thigh Cora, diameter M.D. 22-23 cm. . Patellar dislocation. [...] 0.2% 14uni 0.25mg in H66.92 Max HCL 2017 - ts ear q 12 hrs Cora, 12/25/ x 7 days M.D. 2016 Ofloxacin 12/25/ Hx Solution 0.3% 5ml 10 drops Max (Otic) 2016 - left ear Cora, 03/23/ once per day M.D. 2018 for 10 days Lansoprazole 09/11/ Hx Capsules 30mg 30cap 1 by mouth K21.9 Brucewnti 2016 - DR brandan Wyatt, 11/19/ MANUAL CONTROL AUGER PRESS OPERATOR-C 2016 Levitra 12/02/ Hx Tablets 20mg 6tabs Take 1/2 To Max 2015 - 1 Tablet By Cora, 11/18/ Mouth Every M.D. 2016 Day as Needed Azithromycin 06/13/ Hx Tablets [...] 20mg 30cap 1 tablet po 719.41 Aracelis 2013 - s qd for left Jaya, 10/31/ shoulder MANUAL CONTROL AUGER PRESS OPERATOR-C 2014 pain Tramadol HCL 01/20/ Hx Tablets 50mg 30thi 1-2 tablets 719.41 Aracelis 2013 - rty po q hs prn Jaya, 10/31/ pain MANUAL CONTROL AUGER PRESS OPERATOR-C 2014 Voltaren 01/18/ Hx Gel 1% 100gm apply 2 gm Max 2012 - to shoulder Cora, 10/31/ qid prn M.D. 2014 Ketorolac 01/11/ Hx Tablets 10mg 30tab 1 [...] 2010 - e) mcg/ac s prn Cora, 04/26/ M.D. 2013 Omeprazole 10/04/ Hx Capsules 20mg 30cap 1 po qd Max Shepherd, M.D. 2011 Amoxicillin 06/28/ Hx Tablets 875mg 20tab 1 [...] bid x Max 2008 - s 10 . Cora, M.D. 2008 Augmentin 10/01/ Hx Tablets 875mg 14tab 1 po bid Chandrika 2009 - s Bruce M.D., 2009 R.D. Guaifenesin/Cod 09/25/ Hx Solution 100-10/5 100ml 1-2 tsp po 486 Max carroll 2009 - q4hr prn Cora 12/24/ M.D. 2009 Azithromycin 09/25/ Hx Tablets 250mg 6tabs 2 po qd day 486 Max 2008 - , then 1 po Cora, 12/24/ qd days 2-5 M.D. 2009 Proventil HFA 09/04/ Hx Aerosol 108mcg/Ac 1unit 2 puffs q4h Max 2009 Frederick hendricks s prn Cora, M.D. 2010 Meclizine HCL 08/03/ Hx Tablets 12.5mg 30tab 1-2 tid prn Max 2007 - s Cora M.D. 2008 Levaquin 03/03/ Hx Tablets 500mg 10tab one qd x 10 Max 2006 - s susanna Shepherd, M.D. 2008 Protonix 11/03/ Hx Tablets 40mg 30tab 1 po qd Max 2006 - brandan Shepherd M.D. 2010 Omeprazole 07/22/ Hx Capsules 20mg 30cap 1 po qd Max 2006 - brandan Shepherd M.D. 2007 Drysol 10/07/ Hx Solution 20% 35ml apply to 780.8 Max 2005 - affected Cora, 03/28/ area qhs M.D. 2009 Flexeril 07/22/ Hx Tablets 10mg 30tab 1 po tid 724.2 Mxa 2005 - s Cora, 10/07/ M.D. 2005 Tylenol W07/22/ Hx Tablets 300mg;30 30tab 1-2 q4h prn 724.2 Max Codeine #3 2005 - mg s Shepherd, M.D. 2005 Naprosyn-Ec 07/22/ Hx Tablets 500mg 60tab 1 po bid 724.2 Max 2005 - s Shepherd, M.D. 2005 Augmentin 07/08/ Hx Tablets 875mg;125 20tab one po bid 2005 - mg s for 10 days Cora, 10/06/ M.D. 2005 Tylenol W11/28/ Hx Tablets 300mg;30 30tab 1-2 Q4H prn Max Codeine #3 2003 - mg s Cora 12/28/ M.D. 2003 Augmentin 06/04/ Hx Tablets 875mg;125 20tab one po bid Rosa 2003 - mg s for 10 days K.W. 02/21/ Ronn 2004 M.D. phenergan 06/03/ Hx 25mg 40uni one to two 789.01 Rosa 2004 - ts po qid prn K.W. 03/19/ nausea Ronn 2005 M.D. Darvocet N 100 06/03/ Hx Tablets 100mg;650 45tab 1 to 2 q6 789.01 Rosa 2003 - mg s hours prn K.W. 11/28/ pain Ronn 2004 M.D. Zithromax 05/28/ Hx Tablets 250mg 6tabs 2 on day 2003 - , then Cora06/04/ qd x4 M.D. 2003 days Vicodin Tuss 05/28/ Hx Syrup 5mg;100mg 4Oz 5 ml po q4h 2003 - /5ML prn Cora 03/19/ M.D. 2004 Maxalt-INFORMATION SYSTEMS DIRECTOR 01/02/ Hx Tablets 10mg 6tabs take on pill 2002 - stat upon Cora07/08/ onset of M.DObey 2005 headache- may repeat after 2 hours Zantac / Hx Tablets 150mg 60tab one bid prn Max 0000 - s Cora, 03/28/ M.D. 2009 Albuterol / Hx Aerosol 90mcg/Dos 1unit 2 puffs q4hr Max 0000 - e s prn Cora, 09/04/ M.DObey 2008 Immunizations CPT Code Status Date Vaccine Lot # [id number] Given 11/01/2013 Prevnar-13 Pneumococcal Conjugate Vaccine [id number] 76389 Given 04/22/2011 Tdap (Adacel) [id number] 09787 Given 01/12/2008 Influenza Virus Vaccine, 3 Yrs And Above [id number] 78725 Given 01/19/2007 Influenza Virus Vaccine, 3 Yrs And Above 39546 Given 01/19/2007 Influenza Virus Vaccine, 3 Yrs And Above [id number] 97435 Given 01/26/2006 Influenza Virus Vaccine, 3 Yrs And Above [id number] 34036 Given 12/19/2004 Influenza Virus Vaccine, 3 Yrs And Above 20251 Given 03/04/2004 Pneumovax 23 (PPSV23) 65+ years or high risk 2 to 64 year old 61802 Given 03/04/2004 Influenza Virus Vaccine, 3 Yrs And Above 44697 Given 01/02/2003 DT (Adult) 00106 Refused 01/24/2015 Influenza Virus Vaccine, Quadrivalent, 3 Yr > Quad, Preserv Free Vital Signs Date Vital Result Comment 03/24/2017 Weight 256.00 lb Weight in kg's [...] Rate 26 /min O2 % BldC Oximetry 04925 % 01/02/2003 Weight 225.00 lb Weight in kg's 102.060 BP Systolic 140 mmHg BP Diastolic 80 mmHg Heart Rate 68 /min Respiratory Rate 18 /min Height 70.50 inches BMI (Body Mass Index) 31.8 kg/m2 Results Test Date Test Result H/L Range Note Lipid Profile (Trig/Chol/HDL) 11/05/2016 Triglycerides 70 mg/dL 1 Cholesterol 137 mg/dL 2 HDL Cholesterol 43.7 mg/dL 3 LDL Cholesterol 79 mg/dL 4 Comp Metabolic Panel 11/05/2016 Sodium 136 mmol/L [...] Egfr Non- 75.6 >60 Egfr 97.2 >60 5 CBC Auto Diff 11/05/2016 White Blood Count [...] 0-2 Nucleated Red Blood Cells % 0.2 Laboratory test 11/05/2016 Hemoglobin A1c (Glyco 5.4 % Less than 6.0 6 finding HGB) Lipid Profile 11/14/2015 Triglycerides 51 mg/dL 7 (Trig/Chol/HDL) Cholesterol 146 mg/dL 8 HDL Cholesterol 46.6 [...] than 6.0 13 Urine DIP 10/31/2014 Specific [place] 1.020 1.01-1.02 Urine pH 5 5-6 Leukocytes [...] ng/mL 0-4.000 18 Urine DIP 11/01/2013 Specific [place] 1.020 1.01-1.02 Urine pH 5 5-6 Leukocytes [...] NEG Neg Urine Blood NEG Neg Specific [place] N/A Low 1.01-1.02 Comp Metabolic Panel 04/19/2012 [...] NEG Neg Urine Blood NEG Neg Specific [place] NA Low 1.01-1.02 Comp Metabolic Panel 04/15/2011 [...] NEG Neg Urine Blood NEG Neg Specific [place] N/A Low 1.01-1.02 Comp Metabolic Panel 04/10/2010 [...] NEG Neg Urine Blood NEG Neg Specific [place] N/A Low 1.01-1.02 Lipid Profile (Trig/Chol/HDL) 02/18/2009 [...] NEG Neg Urine Blood NEG Neg Specific [place] 1.025 High 1.01-1.02 CBC 06/04/2003 WBC 12.1 [...] NEG Neg Urine Blood NEG Neg 1 Desirable <150 Borderline high 150-199 High 200-499 Very High >500 2 Desirable <200 Borderline high 200-239 High >239 3 Low <40 Desirable: 40-60 High: >60 4 Desirable: <100 mg/dL Near Optimal: 100-129 mg/dL Borderline High: 130-159 mg/dL High: 160-189 mg/dL Very High: >189 mg/dL 5 Because ethnic data is not always readily [...] 15-29 5 Kidney failure <15 (or dialysis) 6 Therapeutic target for the treatment of diabetes Mellitus patients is <7% HBA1C, and in selective patients <6.0%.Please refer to [place] [employer] Diabetic care guidelines for further information. 7 Desirable <150 Borderline high 150-199 High 200-499 Very High >500 8 Desirable <200 Borderline high 200-239 High >239 9 Low <40 Desirable: 40-60 High: >60 10 Desirable: <100 mg/dL Near Optimal: 100-129 mg/dL Borderline High: 130-159 mg/dL High: 160-189 mg/dL Very High: >189 mg/dL 11 Serum levels of PSA measured using the iiMonde DXI Hybritech immunoassay should not be interpreted [...] and in selective patients <6.0%.Please refer to [place] [employer] Diabetic care guidelines for further [...] and in selective patients <6.0%.Please refer to [place] [employer] Diabetic care guidelines for further [...] and in selective patients <6.0%.Please refer to [place] [employer] Diabetic care guidelines for further information. 18 Serum levels of PSA measured using the Joselito Moka DXI Hybritech immunoassay should not be interpreted [...] and in selective patients <6.0%.Please refer to [place] [employer] Diabetic care guidelines for further information. 21 THERAPEUTIC TARGET FOR THE TREATMENT OF DIABETES MELLITUS PATIENTS IS <7% HBA1C, AND IN SELECTIVE PATIENTS <6.0%. PLEASE REFER TO [place] [employer] DIABETIC CARE GUIDELINES FOR FURTHER [...] has been shown to interfere with the Jendrassik-Ridgewood method for measuring total bilirubin. Samples from [...] IN SELECTIVE PATIENTS <6.0%. PLEASE REFER TO [place] [employer] DIABETIC CARE GUIDELINES FOR FURTHER INFORMATION. 30 * SERUM LEVELS OF PSA MEASURED USING THE JOSELITO MARIELA ACCESS HYBRITECH IMMUNOASSAY SHOULD NOT BE [...] IN SELECTIVE PATIENTS <6.0%. PLEASE REFER TO [place] [employer] DIABETIC CARE GUIDELINES FOR FURTHER INFORMATION. 35 * SERUM LEVELS OF PSA MEASURED USING THE iKONVERSE ACCESS HYBRITECH IMMUNOASSAY SHOULD NOT BE INTERPRETED [...] change was based on recommendations from the [place] [employer]. 38 Please note change in [...] (or dialysis) 41 ---- RUN DATE: 05/06/09 [facility] NMI LIVE PAGE 1 RUN TIME: 1453 Specimen Inquiry RUN USER: INTERFACE -- Name: ALEJANDRO BANGURA Status: REG REF Re05/03/09 Age/Sex: 54/M Unit#: [id number] Location: [facility] : 59 -- Specimen: [id number] SOUT Spec Date: 05/03/[address]: Edwar poon MD Spec Type: SURGICAL P Received: 05/03/09-7675 Copies to: Max Shepherd MD SPECIMEN BIOPSY CECAL POLYP HISTORY POST-OP DIAGNOSIS: Cecal polyp removed CLINICAL INFORMATION: Screening colonoscopy GROSS DESCRIPTION Specimen received in formalin labelled Alejandro Bangura, Biopsy Cecal Polyp and consists of three, quiles, soft tissue fragments measuring 0.7 x 0.3 x 0.2 cm. in aggregate. Submitted entirely, one cassette. DIAGNOSIS Colon, cecum, biopsy: Hyperplastic polyp. Signed Electronically by: TAHIR HYDE MD 05/06/09 1453 -- -- DEPARTMENT OF PATHOLOGY, [address] [place] [address] [facility] Permit #[id number] Tahir Hyde M.D. Director Jerry Rangel M.D. [place] Hat Smearer Dir alves -- 42 * SERUM LEVELS OF PSA MEASURED USING THE JOSELITO MARIELA ACCESS HYBRITECH IMMUNOASSAY SHOULD NOT BE [...] change was based on recommendations from the [place] [employer]. 48 Please note change in [...] Date CPT Code Description Status Comment 11/19/2016 01070 EKG, at Least 12 Leads Completed w/Interpretation and Report 04/15/2009 Colonoscopy Completed hyperplastic polyp. Repeat recommended 2019. 03/28/2009 38865 EKG, at Least 12 Leads Completed w/Interpretation and Report 03/04/2004 47493 Oximetry - Single Study Completed 05/29/2003 91329 Oximetry - Single Study Completed Encounters Type Date Location Provider CPT E/M Dx Office Visit 11/19/2016 2:15p Main Office Max Shepherd M.D. 44708 Z00.00 K21.9 R73.01 G47.33 M25.562 Office Visit 11/21/2015 2:15p Main Office Max Shepherd M.D. 12554 Z00.00 G47.33 R73.01 K21.9 M17.12 Office Visit 02/20/2015 3:45p Main Office Max Shepherd M.D. 63514 M25.562 Office Visit 01/24/2015 4:00p Main Office Mxa Shepherd M.D. 56509 H81.399 Office Visit 10/31/2014 2:15p Main Office Max Shepherd M.D. 56872 V70.0 327.23 790.21 530.81 Office Visit 08/30/2014 4:45p Main Office Max Shepherd M.D. 49316 466.0 Office Visit 06/13/2014 3:45p Main Office Max Shepherd M.D. 49887 466.0 Office Visit 11/01/2013 2:15p Main Office Max Shepherd M.D. 76011 V70.0 327.23 790.21 530.81 302.70 V76.44 V03.82 Office Visit 05/23/2013 3:30p Main Office Max Shepherd M.D. 72947 726.13 Office Visit 01/20/2013 4:00p Main Office [place] [facility] 17087 719.41 Office Visit 01/03/2013 4:00p Main Office Max Shepherd M.D. 97270 719.41 Office Visit 04/26/2012 8:45a Main Office Max Shepherd M.D. 79437 V70.0 346.90 327.23 790.21 530.81 Office Visit 10/21/2011 9:30a Main Office Max Shepherd M.D. 14321 790.21 530.81 346.90 386.10 327.23 Office Visit 10/01/2011 4:45p Main Office Max Shepherd M.D. 40612 386.10 Office Visit 04/22/2011 8:45a Main Office Max Shepherd M.D. 13780 V70.0 790.21 530.81 780.50 346.90 V06.1 Office Visit 11/20/2010 9:30a Main Office Max Shepherd M.D. 51499 790.21 530.81 780.50 346.90 278.00 Office Visit 04/18/2010 9:00a Main Office Max Shepherd M.D. 02481 V70.0 790.21 530.81 780.50 840.4 346.90 278.00 Office Visit 09/25/2009 9:45a Main Office Max Shepherd M.D. 39179 790.21 477.9 780.50 530.81 840.4 Office Visit 06/28/2009 12:15p Main Office Max Shepherd M.D. 31135 461.8 477.9 780.50 Office Visit 03/28/2009 2:15p Main Office Max Shepherd M.D. 79028 V70.0 530.81 790.21 346.90 553.1 289.89 389.9 780.50 Office Visit 10/04/2008 4:45p Main Office Max Shepherd M.D. 36732 486 Office Visit 09/25/2008 3:45p Main Office Max Shepherd M.D. 68569 486 Office Visit 01/12/2008 3:45p Main Office Max Shepherd M.D. 45569 382.9 V04.81 Office Visit 08/04/2007 2:15p Main Office Max Shepherd M.D. 96044 386.10 Office Visit 03/03/2007 4:15p Main Office Max Shepherd M.D. 13067 466.0 Office Visit 07/22/2006 3:30p Main Office Max Shepherd M.D. 91356 381.01 787.1 Office Visit 12/08/2005 10:45a Main Office Max Shepherd M.D. 60032 346.90 780.8 784.0 787.1 553.1 Office Visit 10/07/2005 1:15p Main Office Max Shepherd M.D. 18080 V70.0 346.90 V18.0 780.8 493.90 784.0 Office Visit 07/22/2005 1:15p Main Office Max Shepherd M.D. 02367 724.2 Office Visit 07/08/2005 3:30p Main Office Max Shepherd M.D. 24311 381.01 784.0 346.10 Office Visit 06/17/2005 3:45p Main Office Max Shepherd M.D. 01184 381.01 Office Visit 12/19/2004 12:15p Main Office Max Shepherd M.D. 79103 510.9 786.59 V04.81 Office Visit 07/10/2004 3:45p Main Office Max Shepherd M.D. 34098 930.9 Office Visit 03/19/2004 3:30p Main Office Max Shepherd M.D. 27160 510.9 Office Visit 03/04/2004 9:15a Main Office Max Shepherd M.D. 34001 510.9 V04.81 V03.82 Office Visit 02/20/2004 3:15p Main Office Max Shepherd M.D. 95901 786.2 Office Visit 11/29/2003 4:15p Main Office Max Shepherd M.D. 37970 346.90 786.2 Office Visit 09/26/2003 11:15a Main Office Aracelis Medina M.D. 12153 930.0 Office Visit 06/04/2003 3:45p Main Office Rosa Brody M.D. 68666 789.01 Office Visit 05/29/2003 3:00p Main Office Max Shepherd M.D. 18312 465.9 Office Visit 01/02/2003 1:15p Main Office Max Shepherd M.D. 97885 V70.0 780.8 346.90 V76.9 Plan of Care 03/24/2017 - Max Shepherd M.D.Z01.818 Encounter for other preprocedural examinationComments:Low risk for surgery. No further testing indicated prior to surgery per AHA and ACC guidelines.Recommendations:Stop taking aspirin 7 days before your surgery. Stop taking any nsaids including Meloxicam (ibuprofen, advil, motrin, alleve, naprosyn etc) 5 days before surgery. Tylenol is OK.M17.12 Unilateral primary osteoarthritis, left knee
[2017-04-19] MEDS ORDERED: Gabapentin CAP(*) 300 MG ONE (06:08)
[2017-04-19] MEDS ORDERED: Metoclopramide TAB* 10 MG ONE (06:08)
[2017-04-19] MEDS ORDERED: Ibuprofen TAB* 600 MG ONE (06:08)
[2017-04-19] MEDS ORDERED: ceFAZolin 2 GM PREMIX (*) 2 GM/50 ML BAG IVPB ONE (06:09)
[2017-04-19] MEDS ORDERED: Buffered Lidocaine 0.9% SYRIN* 5 ML/SYR SYRINGE ONE (06:09)
[2017-04-19] MEDS ORDERED: Acetaminophen IV 1GM/100ML * 100 ML ONE (06:13)
[2017-04-19] MEDS ORDERED: oxyCODONE SR TAB(*) 10 MG TAB.SR PO ONE (06:30)
[2017-04-19] MEDS ORDERED: Ibuprofen TAB* 600 MG PO ONE (06:30)
[2017-04-19] MEDS ORDERED: Famotidine IV* 10 MG/ML 2 ML (20 mg) ONE ×2 (06:42→08:15)
[2017-04-19] MEDS ORDERED: oxyCODONE SR TAB(*) 10 MG TAB.SR ONE (06:42)
[2017-04-19] MEDS ORDERED: Dexamethasone IV* 4 MG/ML 1 ML (4 MG) ONE (06:53)
[2017-04-19] MEDS ORDERED: Lidocaine 2% PF * 5 ML VIAL ONE ×2 (06:53→07:10)
[2017-04-19] MEDS ORDERED: Ondansetron INJ* 2 MG/ML VIAL ONE ×2 (06:53→12:29)
[2017-04-19] MEDS ORDERED: Propofol* 10 MG/ML 20 ML BTL IV PUSH ONE ×2 (06:53→13:29)
[2017-04-19] MEDS ORDERED: fentaNYL* 50 MCG/ML 2 ML VIAL (100 MCG VIAL) ONE ×3 (06:54→08:35)
[2017-04-19] MEDS ORDERED: KETAMINE HCL* 50 MG/ML 10 ML VIAL ONE (06:54)
[2017-04-19] MEDS ORDERED: Midazolam* 1 MG/ML 10 ML VIAL (10 MG) ONE (06:54)
[2017-04-19] MEDS ORDERED: ROPIVACAINE 5 MG/ML 30 ML BTL (0.5%) ONE (07:10)
[2017-04-19] MEDS ORDERED: Lidocaine 1% MPF wEPI 200,000* 30 ML SDV ONE (07:12)
[2017-04-19] MEDS ORDERED: Bupivacaine 0.5% SDV PF* 10-30ML VIAL ONE ×2 (07:12→14:33)
[2017-04-19] MEDS ORDERED: Phenylephrine INJ* 10 MG/ML 1 ML VIAL (10 MG) ONE ×2 (08:02→11:46)
[2017-04-19] MEDS ORDERED: Ondansetron INJ* 2 MG/ML VIAL IV PRN ×2 (08:52→09:58)
[2017-04-19] MEDS ORDERED: fentaNYL* 50 MCG/ML 2 ML VIAL (100 MCG VIAL) IV PRN (08:52)
[2017-04-19] MEDS ORDERED: Naloxone* 0.4 MG/ML 1 ML VIAL IV PRN (08:52)
[2017-04-19] MEDS ORDERED: oxyCODONE/Acetamin 5/325 MG* TAB PO PRN (09:58)
[2017-04-19] MEDS ORDERED: Ondansetron TAB* 4 MG PO PRN (09:58)
[2017-04-19] MEDS ORDERED: Morphine INJ* 2 MG/ML 1 ML CARPUJECT IV PRN (09:58)
[2017-04-19] MEDS ORDERED: Bisacodyl SUPP* 10 MG SUPP PR PRN (09:58)
[2017-04-19] MEDS ORDERED: Cyclobenzaprine TAB* 10 MG PO PRN (09:58)
[2017-04-19] MEDS ORDERED: Polyethylene Glycol 3350* 17 GM PACKET PO PRN (09:58)
[2017-04-19] MEDS ORDERED: Magnesium Hydroxide LIQ* 30 ML UDC PO PRN (09:58)
[2017-04-19] MEDS ORDERED: Acetaminophen TAB* 325 MG PO PRN (09:58)
[2017-04-19] MEDS ORDERED: diPHENhydraMINE IV* 50 MG/ML 1 ml VIAL (BENADRYL) IV PRN (09:58)
[2017-04-19] MEDS ORDERED: Morphine INJ* 4 MG/ML 1 ML CARPUJECT IV PRN (09:58)
[2017-04-19] MEDS ORDERED: Omeprazole CAP* 20 MG PO PRN (10:06)
[2017-04-19] MEDS ORDERED: Albuterol HFA INHALER* 8 gm MDI INH PRN (10:06)
--- NOTE | 2017-04-19 11:07 | RAD ---
Indication: Immediate postop exam following LEFT total knee replacement. Comparison: April 07, 2017 Technique: Portable AP and cross table lateral views LEFT knee. Report: Status post total knee replacement. Anterior cutaneous samantha. Post-op fluid and gas is seen in the joint space and anterior subcutaneous tissues. Alignment is anatomic. No periprosthetic fracture evident. IMPRESSION: Unremarkable immediate postoperative appearance following LEFT knee replacement.
[2017-04-19] MEDS ORDERED: Propofol* 500 MG/50 ML BTL ONE (11:24)
[2017-04-19] MEDS: D5W 1/2 NS 1000 ML BAG* 1,000 ML IV SCH ×2 (12:17→22:12)
[2017-04-19] MEDS ORDERED: Ropivacaine (OR use only) 2 MG/ML 1 ML ONE (13:15)
[2017-04-19] MEDS: oxyCODONE/Acetamin 5/325 MG* TAB PO PRN (16:08)
[2017-04-19] MEDS: ceFAZolin 1 GM in Dextrose (*) 1 GM/50 ML BAG IVPB SCH ×2 (16:09→23:57)
[2017-04-19] MEDS ORDERED: Warfarin TAB(*) 10 MG PO ONE (17:00)
[2017-04-19] MEDS: Docusate CAP* 100 MG PO SCH (21:26)
[2017-04-19] MEDS: Magnesium Hydroxide LIQ* 30 ML UDC PO SCH (21:26)
[2017-04-19] MEDS: oxyCODONE TAB* 5 MG TAB PO PRN (21:26)
--- NOTE | 2017-04-19 21:29 | OP ---
DATE OF OPERATION: 04/19/17 - ROOM #342 DATE OF : 59 SURGEON: Addy Alvarez MD ASSISTANTS: 1. GILMAR Osborn 2. Jacy Gaston RPA ANESTHESIOLOGIST: Rupesh Bates MD ANESTHESIA: Regional and general. PRE-OP DIAGNOSIS: Osteoarthritis, left knee. POST-OP DIAGNOSIS: Osteoarthritis, left knee. OPERATIVE PROCEDURE: Left total knee arthroplasty. INDICATIONS: Mr. Bangura is a 62-year-old male, who has been having continued troubles with left knee pain. On x-ray, it could be seen where he is bone-on- bone on the medial compartment, but his lateral compartment did appear to be in good condition. Unfortunately, his patellofemoral joint had some very specific tilt with spurring, so I did not believe he was a good candidate for just a medial compartment arthroplasty. I discussed with him that a total knee arthroplasty should work well to decrease his pain and improve his function. Risks of surgery such as infection, scar formation, stiffness, DVT, pulmonary embolism, hardware failure, and continued pain were some of the risks discussed. He had been declared medically optimized and wished to proceed. ESTIMATED BLOOD LOSS: 50 cc. COMPLICATIONS: None. HARDWARE: Andreea Persona #9 femur, F tibia, 10-mm polyethylene, 35-mm all polyethylene patellar button. DESCRIPTION OF PROCEDURE: The patient had an adductor canal block placed in the holding area and was brought back to the OR. General anesthesia was then established. Mora catheter was placed. Tourniquet was placed over the proximal left thigh and was used during the case. Total tourniquet time would be 67 minutes. Left knee was prepped and then draped. Skin over the incisional area was infiltrated using 20 cc of 0.25% Marcaine mixed with 1.5% lidocaine with epinephrine. Esmarch was used to exsanguinate the leg and the tourniquet was raised. Midline incision was made beginning just medial to the tibial tubercle and carried up to the center of the patella and up over the quadriceps tendon. Small bleeders encountered were ligated using electrocautery. Quite the prepatellar bursa was present and bursal tissue was sharply incised. Extensor mechanism was exposed and a sharp parapatellar arthrotomy was made. Clear yellowish joint fluid was encountered. Soft tissues were sharply elevated from the medial side of the tibia and the fat pad was sharply excised. Patella measured 23 mm in thickness and a nice 10-mm cut was taken. Patella was then easily subluxated laterally and the knee was flexed up. Nice exposure of the distal femur was obtained. It could be seen where he had very specific exposed bone on the medial femoral condyle. Step drill was used to open up the femoral canal and intramedullary guide was placed. He was set to resect 2 mm distally and I had templated him to be at approximately 4 degrees. This seemed to sit quite nicely and he was rotated such that he was parallel with his epicondyles. Distal femoral cutting guide was then pinned into place and the intramedullary guide was removed. Distal femoral cut was taken and it appeared a nice cut was obtained. He sized nicely for a 9. Holes were drilled and cutting block was placed. Running through the superior drill hole, this came out right on the top of side of femoral cortex, so I knew I would not notch the femur. Anterior and posterior femoral cuts followed by the chamfer cuts were taken. Attention was turned to the tibia. Step drill was used to open up the tibial canal and intramedullary guide was placed. Outrigger was assembled and adjusted until it would take 2 mm from the worn medial side. Drop janny was dropped to get the rotation correct and then proximal tibial guide was then pinned into place. Proximal tibial cut was taken and it appeared a nice cut was obtained. A 10 spacer block was placed and he was a little bit lose in flexion as it is designed to take an extra 2 mm posteriorly and with coming out in the full extension, he sat very nicely and his alignment appeared perfect. Drop rods were placed and these came nicely along the anterior spine of the tibia. He also locked out nicely into full extension. Tibia was then sized and an F sat very nicely. This was pinned into place and proximal tibia was drilled and then punched. Attention was returned to the femur. 9 was placed and stud holes were drilled and the notch cut was finished. He was trialed with a 10 and came out nicely into full extension and also flexed quite nicely. Patella went into subluxate without the trial and he sized for a 35. Holes were drilled and trial was snapped into place. This helped, but he still occasionally would still flip off the femur. He did have quite the thick synovium and some of this was cut laterally. This did help. Instrumentation was removed and the knee was copiously pulse lavaged. Cement was being prepared. Tibia followed by femur and patella were all cemented into place. Excess cement was removed and the cement was allowed to harden. Once the cement had hardened, the knee was again searched for excess cement. He was then trialed with a 10 and had the same wonderful motion and stability. Knee was again copiously pulse lavaged and 10 [address] was snapped [address] Parapatellar arthrotomy was repaired using interrupted #1 Vicryl sutures and patellar tracking was perfect. Tourniquet was let down and no significant bleeding was encountered. Knee was again pulse lavaged and the subcutaneous tissues were re-approximated using 2-0 Vicryl. Skin was closed using samantha. Sterile dressing and a Cryo/Cuff were applied in the OR. The patient was then awoken in the OR and was stable on transfer to the recovery room. [id number]/CPS #: [id number] LANRE
[2017-04-20 05:18] LABS: INR 1.04 (0.77-1.02)
[2017-04-20 05:19] LABS: Hematocrit 41 % (42-52); Hemoglobin 14.1 g/dl (14.0-18.0); Mean Platelet Volume 8 um3 (7.4-10.4); Platelet Count 195 10^3/ul (150-450)
[2017-04-20] MEDS: oxyCODONE TAB* 5 MG TAB PO PRN (06:39)
[2017-04-20] MEDS: Magnesium Hydroxide LIQ* 30 ML UDC PO SCH (07:40)
[2017-04-20] MEDS: Docusate CAP* 100 MG PO SCH (07:40)
[2017-04-20] MEDS: ceFAZolin 1 GM in Dextrose (*) 1 GM/50 ML BAG IVPB SCH (07:42)
[2017-04-20] MEDS ORDERED: Vitamin THERAPEUTIC TAB PO SCH (09:00)
[2017-04-20] MEDS: oxyCODONE/Acetamin 5/325 MG* TAB PO PRN ×2 (09:14→18:07)
[2017-04-20] MEDS ORDERED: Heparin VIAL(*) 5000 UNITS/ML VIAL (FIVE THOUSAND) SUBCUT SCH (12:00)
--- NOTE | 2017-04-20 12:41 | PN ---
Progress Note - Progress Note Date of Service: 04/20/17 SOAP: Subjective: []Patient seen at bedside. He reports feeling well with knee pain only after ROM. Denies CP, SOB, dizziness, nausea, leg numbness. Objective: [] Vital Signs Temp 98.1 F 04/20/17 07:31 Pulse 67 04/20/17 07:31 Resp 16 04/20/17 10:46 BP 117/72 04/20/17 07:31 Pulse Ox 96 04/20/17 07:31 Intake & Output 04/19/17 04/20/17 04/20/17 18:59 06:59 18:59 Intake Total 2190 2645 1009 Output Total 225 2024 Balance 0432 204 6574 Intake: IV Fluids 1950 1075 956 ABX - CEFAZOLIN 102 D51/2NS 0 973 956 LR 1900 NS 50ML, Cefazolin 2G 50 IVPB 53 ABX - CEFAZOLIN 53 Oral 240 1570 Output: Urine 0 Mora 225 2024 Other: Estimated Blood Loss 50 Comment General: Well appearing, NAD LLE: DF/PF intact. 2+ DP pulse. Dressing changed. Incision CDI without erythema or discharge. BL LE: Calves supple and nontender without erythema, edema or palpable cords. Assessment: []POD 1 s/p Left total knee arthroplasty Plan: []WBAT PT/OT Desires DC home today. Approved with Dr Alvarez Will send home tonight after dinner on eliquis 2.5 mg BID x 3 weeks
[2017-04-20 15:55] VITALS: BP 138/79
[2017-04-20] MEDS ORDERED: Warfarin TAB(*) 6 MG PO ONE (17:00)
--- NOTE | 2017-04-21 00:16 | DS ---
DISCHARGE SUMMARY: DATE OF ADMISSION: 04/19/17 DATE OF DISCHARGE: 04/20/17 DATE OF OPERATION: 04/19/17 PROVIDER AND SURGEON: Dr. Addy Alvarez. * (DICTATED BY GILMAR RAM) TRANSFORMER BUILDER: GILMAR Osborn; GILMAR Valdovinos. PRE-OP DIAGNOSIS: Osteoarthritis of the left knee. OPERATIVE PROCEDURE: Left total knee arthroplasty. HISTORY: Mr. Bangura is a 62-year-old male who has had continued troubles with left knee pain. On x-ray, it could be seen where he has [id number] in the medial compartment, but his lateral compartment did appear to be in good condition. Unfortunately, his patellofemoral joint had some very specific tilt with spurring, so I did not believe he was a good candidate for just a medial compartment arthroplasty. He elected for a total left knee arthroplasty. HOSPITAL COURSE: The patient was admitted to [facility] on . He underwent a left total knee arthroplasty without complication. He was brought to the PACU in stable condition where he recovered briefly and then was brought to the short stay surgical unit in stable condition. On postop day 1, the patient was seen at bedside. He was well appearing in no acute distress. Dorsiflexion and plantar flexion were intact. In his left lower extremity, he had 2+ dorsalis pedis pulses. Dressings were changed and the incision was clean dry and intact without erythema or discharge, bilateral lower extremities. Calves were supple and nontender without edema, erythema, or palpable cord. The patient desired discharge home today and thus he is doing quite well. This was approved by Kim. Hemoglobin 14.1, hematocrit 41, INR 1.04, glucose 174, calcium 8.3. Vital Signs: Temperature 98.1, pulse rate 67, respiratory rate 18, oxygen saturation 96, blood pressure 117/72. DISCHARGE MEDICATIONS: 1. Nexium 40 mg p.o. daily p.r.n. 2. Proventil HFA 108 mcg/ACT 2 puffs p.o. q.4 hours p.r.n. 3. Acetaminophen 650 mg p.o. q.4 hours p.r.n., max daily dose of 4000 mg from all sources. 4. Eliquis 2.5 mg tablet, please take 1 tab every 12 hours for 21 days. 5. Percocet 5/325 one to two tabs every 4 hours as needed for pain, max daily dose of 10. 6. Docusate 100 mg p.o. b.i.d. p.r.n. DISCHARGE INSTRUCTIONS: Weightbearing as tolerated. Okay to shower after 04/22. Do not submerge the wound. Go to the emergency room with shortness of breath or chest pain. Call the orthopedic office for increased drainage, redness, increased pain or fever. Regular diet. Use stool softeners to rule out constipation. Call office if no bowel motion within 48 hours. Continue physical therapy and occupational therapy. Exercises are shown. Visiting home nurses will do wound check and remove samantha in 10 to 12 days. He will take Eliquis 2.5 mg every 12 hours for 3 weeks for prophylaxis against blood clots. Start his first dose on the morning of 04/21/17. Pain control with Percocet to 5/325 mg 1 to 2 tablets by mouth every 4 to 6 hours as needed, max daily dose of 10 mg. Follow up with Dr. Alvarez in 4 weeks. Call for an appointment. GILMAR RAM [id number]/[facility] #: [id number] LANRE
== END 2017-04-20 18:52 | disposition home or self-care (01) | DRG 302 ==
LOC: OBSVTOIN 05:57 → INTOOBSV 05:57 → AA 05:57 → SSU 12:08
PROVIDERS: ADMIT Orthopaedic Surgery; ATTEND Orthopaedic Surgery
PROC: 0SRD0J9 Replacement of Left Knee Joint with Synthetic Substitute, Cemented, Open Approach (ICD-10-PCS; principal; 2017-04-19 07:30)
DX: M17.12 Unilateral primary osteoarthritis, left knee (principal); J43.9 Emphysema, unspecified; K21.9 Gastro-esophageal reflux disease without esophagitis; G43.909 Migraine, unspecified, not intractable, without status migrainosus; G47.33 Obstructive sleep apnea (adult) (pediatric); E66.9 Obesity, unspecified; R73.03 Prediabetes; K63.5 Polyp of colon; J45.20 Mild intermittent asthma, uncomplicated; Z87.891 Personal history of nicotine dependence; Z72.89 Other problems related to lifestyle; Z68.35 Body mass index [BMI] 35.0-35.9, adult; Z87.01 Personal history of pneumonia (recurrent); Z87.442 Personal history of urinary calculi; Z88.6 Allergy status to analgesic agent
CPT/HCPCS: 36415; 80048; 85014; 85018; 85049; 85610; 88305; 88311; 94760; A9270-GY; C1776; J0690; J1100; J1644; J2001; J2250; J2405; J2704; J2795; J3010

== ENCOUNTER 2023-09-08 05:40 | Observation (INO) ==
[~2023-09-08 05:40] MED LIST: Metoclopramide 5 MG/ML VIAL (10 mg) IV PRN; NS 0.45% 1000 ml BAG 1,000 ML IV SCH; Naloxone 0.4 mg VIAL 0.4 mg/ml 1 ml VIAL IV PRN; Ondansetron 4 mg VIAL 2 MG/ML 2 ml VIAL IV PRN; fentaNYL 100 mcg/2 ml 50 MCG/ML VIAL IV PRN
[2023-09-08] MEDS ORDERED: Chlorhexidine MOUTHWASH 0.12% 15 ML UDC ONE (05:58)
[2023-09-08] MEDS ORDERED: ceFAZolin 2 GM PREMIX 2 GM/50 ML BAG ONE (05:58)
[2023-09-08] MEDS ORDERED: fentaNYL 100 mcg/2 ml 50 MCG/ML VIAL ONE (06:27)
[2023-09-08] MEDS ORDERED: Midazolam 2 mg/2 ml VIAL 1 mg/ml 2 ml VIAL (2 mg) ONE (06:28)
[2023-09-08 06:29] LABS: Rapid COVID-19 Molecular Undetected (Undetected)
[2023-09-08] MEDS ORDERED: Dexamethasone IV 4 MG/ML VIAL 1 ml VIAL ONE (06:33)
[2023-09-08] MEDS ORDERED: Lidocaine 2% PF 5 ML VIAL ONE (06:33)
[2023-09-08] MEDS ORDERED: Propofol 10 MG/ML 20 ML BTL ONE (06:33)
[2023-09-08] MEDS ORDERED: Ondansetron 4 mg VIAL 2 MG/ML 2 ml VIAL ONE (06:33)
[2023-09-08] MEDS ORDERED: Rocuronium 50 mg VIAL 10 mg/ml 5 ml VIAL (50 mg) ONE (06:35)
[2023-09-08] MEDS: Lactated Ringers 1000 ml BAG 1,000 ML IV SCH ×2 (06:35→14:12)
[2023-09-08] MEDS: Scopolamine 1 mg/72hr PATCH TRANSDERM ONE (06:36)
[2023-09-08] MEDS ORDERED: Gelfoam Sponge SIZE 100 SPONGE ONE (06:47)
[2023-09-08] MEDS ORDERED: Lidocaine 1% w EPI 1:100,000 MDV 20 ML VIAL ONE (06:47)
[2023-09-08] MEDS ORDERED: Thrombin 5,000 UNITS 1 APPLIC KIT - topical use - TOPICAL ONE (06:47)
[2023-09-08] MEDS ORDERED: ceFAZolin VIAL VIAL ONE (06:47)
[2023-09-08] MEDS ORDERED: HYDROmorphone 0.5 MG/0.5 ML SYRINGE ONE (08:08)
[2023-09-08] MEDS ORDERED: Ondansetron 4 mg VIAL 2 MG/ML 2 ml VIAL IV PRN (10:04)
[2023-09-08] MEDS ORDERED: Senna TAB 8.6 mg TAB PO PRN (10:04)
[2023-09-08] MEDS ORDERED: Dextran 70/Hypromellose Tears Eye Drops 15 ml BTL (for Artificials Tears) BOTH EYES PRN (10:04)
[2023-09-08] MEDS ORDERED: Benzocaine/Menthol LOZ MT PRN (10:04)
[2023-09-08] MEDS ORDERED: Phenol 1.4% Throat Spray BTL MT PRN (10:04)
[2023-09-08] MEDS ORDERED: Magnesium Hydroxide LIQ 30 ML UDC PO PRN (10:04)
[2023-09-08] MEDS: Acetaminophen IV 1 GM/100ML 1,000 MG/100 ML BAG IV ONE (12:02)
[2023-09-08] MEDS: Buffered Lidocaine 1% SYRIN 1 ml INTRADERM ONE (12:02)
[2023-09-08] MEDS: Morphine 2 MG/ML SYRINGE IV PRN (13:32)
[2023-09-09] MEDS: Calcium Carb (TUMS) 500 mg CHEW TAB PO PRN (06:00)
[2023-09-09 06:19] VITALS: BP 147/72
[2023-09-09] MEDS: Mometasone/Formoter 100/5 MDI INH SCH (07:36)
== END 2023-09-09 10:40 | disposition home or self-care (01) ==
LOC: OR 05:40 → SSU 05:40
PROVIDERS: ADMIT Neurological Surgery; ATTEND Neurological Surgery